=== PATIENT | female | born 1980 | race Caucasian/White ===

== ENCOUNTER 2017-06-12 12:38 | Emergency (ER) | payer MEDICAID, SELFPAY ==
[2017-06-12 14:28] VITALS: BP 145/89; PULSE 69; RESP 18; TEMP 37.1; O2SAT 97; BMI 46.6
[2017-06-12 14:28] LABS: UTC Influenza A Antigen Positive (Negative); UTC Influenza B Antigen Negative (Negative)
--- NOTE | 2017-06-12 15:03 | HMH.EDUTC ---
[facility] [place] Clinical Impression: Influenza A Disposition: Home, Self-Care Condition on Discharge: Good Instructions: DI for Influenza -- Adult Additional Instructions: * Start Tamiflu today if you are going to take it. Discussed risks and possible benefits. * Lots of rest * Increase fluids, water, gatorade, powerade, pedialyte if /toddler/child * Monitor Temp. Tylenol every 4 hours as needed no more then 5 times a day or 4000mg in 24 hours and/or ibuprofen every 6 hours as needed no more then 3200mg in 24 hours (as long as your primary care doctor has told you that it is ok to take both) for fever/aches/pain. ER if fever no less than 101 despite tylenol and Ibuprofen * You (or your child) are contagious until no fever, aches, chills x 24 hours without medication for symptoms. * warm salt water gargles * warm fluids * sore throat lozenges * sleep elevated * humidifier/vaporizer * * Per hospital policy, Your throat swab was sent for culture. Those results are typically sent to your primary care. Be sure to follow up in 2-3 days if no improvement so they can review those results and treat if necessary. If you don't have primary care, I recommend you get one but in the mean time, you will have to return to a walk in clinic. Prescriptions: Brompheniramine/Pseudoephed/Dm [Bromfed DM Cough Syrup 5mL] 10 ml PO QID PRN #240 ml PRN Reason: Cough Oseltamivir Phosphate [Tamiflu 75mg Capsule] 75 mg PO BID #10 capsule Referrals: Provider,Referral, MD [Primary Care Provider] - (IMMEDIATELY for new or worsening symptoms, improvement followed by suddenly feeling worse OR no noticeable improvement over the next 48-72 hours. 911 for difficulty breathing ) Time of Disposition: 15:10 Medical Decision Making Vital Signs: 06/12/17 14:28 Temperature 98.7 F Temperature Source Oral Pulse Rate [Left Brachial] 69 Respiratory Rate 18 Blood Pressure [Left Arm] 145/89 Blood Pressure Mean [Left Arm] 107 Blood Pressure Source [Left Arm] Automatic Cuff Blood Pressure Position [Left Arm] Sitting 02 Sat by Pulse Oximetry 97 Oxygen Delivery Method Room Air - Lab Data Lab results reviewed: Yes: I reviewed the patient's lab results. Lab Results 06/12/17 12:55: Influenza Type A Ag Positive A, Influenza Type B Ag Negative - Bill Inquiry Pt receiving controlled substance: No [facility] [place] - General Stated complaint: Flu Like Symptoms Time Seen by Provider: 06/12/17 14:50 Mode of Arrival: Ambulatory Source of Information: Patient Limitations: No Limitations Description of Symptoms (Recalled from Triage Doc. by RN): c/o cough, congestion, fever, bodyaches HEENT Symptoms (Recalled from RN notes): No Resp Symptoms (Recalled from RN notes): Yes (cough and congestion) Skin Symptoms (Recalled from RN notes): No MS Symptoms (Recalled from RN notes): Yes (bodyaches) Functional Status (Recalled from RN notes): n/a - History of Present Illness Provider Complaint: c/o bodyaches, chills, headache, sneezing, rhinorrhea starting yesterday. Spouse currently Flu A positive. Has had flu vaccine. Hasn't taken or tried anything for symptoms - Related Data Previous Rx's Medication Instructions Recorded Brompheniramine/Pseudoephed/Dm 10 ml PO QID PRN #240 ml 06/12/17 [Bromfed DM Cough Syrup 5mL] Oseltamivir Phosphate [Tamiflu 75 mg PO BID #10 cap 06/12/17 75mg Capsule] Allergies Allergy/AdvReac Type Severity Reaction Status Date / Time morphine Allergy Intermediate I-RASH Unverified 05/18/17 14:56 - Worker's Comp Is this a Worker's Comp case?: No [facility] History I have reviewed the patient's past medical history: Yes Medical History: Reports:: Hypertension Denies:: Cancer, Diabetes Mellitus Type 1, Diabetes Mellitus Type 2, MRSA Other Surgeries: Yes: (x2), Other (jasper, ) Amputation: No Fractures: No - *Social History Smoking Status: Current every day smoker Tobacco Type: cigarettes Alcohol Intake: alma
--- NOTE | 2017-06-12 15:06 | ED_ITS ---
[facility] [place]ression: Influenza A Disposition: Home, Self-Care Condition on Discharge: Good Instructions: DI for Influenza -- Adult Additional Instructions: * Start Tamiflu today if you are going to take it. Discussed risks and possible benefits. * Lots of rest * Increase fluids, water, gatorade, powerade, pedialyte if /toddler/child * Monitor Temp. Tylenol every 4 hours as needed no more then 5 times a day or 4000mg in 24 hours and/or ibuprofen every 6 hours as needed no more then 3200mg in 24 hours (as long as your primary care doctor has told you that it is ok to take both) for fever/aches/pain. ER if fever no less than 101 despite tylenol and Ibuprofen * You (or your child) are contagious until no fever, aches, chills x 24 hours without medication for symptoms. * warm salt water gargles * warm fluids * sore throat lozenges * sleep elevated * humidifier/vaporizer * * Per hospital policy, Your throat swab was sent for culture. Those results are typically sent to your primary care. Be sure to follow up in 2-3 days if no improvement so they can review those results and treat if necessary. If you don' t have primary care, I recommend you get one but in the mean time, you will have to return to a walk in clinic. Prescriptions: Brompheniramine/Pseudoephed/Dm [Bromfed DM Cough Syrup 5mL] 10 ml PO QID PRN # 240 ml PRN Reason: Cough Oseltamivir Phosphate [Tamiflu 75mg Capsule] 75 mg PO BID #10 capsule Referrals: Provider,Referral, MD [Primary Care Provider] - (IMMEDIATELY for new or worsening symptoms, improvement followed by suddenly feeling worse OR no noticeable improvement over the next 48-72 hours. 911 for difficulty breathing * ) Time of Disposition: 15:10 Medical Decision Making Vital Signs: 06/12/17 14:28 Temperature 98.7 F Temperature Source Oral Pulse Rate [Left Brachial] 69 Respiratory Rate 18 Blood Pressure [Left Arm] 145/89 Blood Pressure Mean [Left Arm] 107 Blood Pressure Source [Left Arm] Automatic Cuff Blood Pressure Position [Left Arm] Sitting 02 Sat by Pulse Oximetry 97 Oxygen Delivery Method Room Air - Lab Data Lab results reviewed: Yes: I reviewed the patient's lab results. Lab Results 06/12/17 12:55: Influenza Type A Ag Positive A, Influenza Type B Ag Negative - Bill Inquiry Pt receiving controlled substance: No [facility] [place] - General Stated complaint: Flu Like Symptoms Time Seen by Provider: 06/12/17 14:50 Mode of Arrival: Ambulatory Source of Information: Patient Limitations: No Limitations Description of Symptoms (Recalled from Triage Doc. by RN): c/o cough, congestion , fever, bodyaches HEENT Symptoms (Recalled from RN notes): No Resp Symptoms (Recalled from RN notes): Yes (cough and congestion) Skin Symptoms (Recalled from RN notes): No MS Symptoms (Recalled from RN notes): Yes (bodyaches) Functional Status (Recalled from RN notes): n/a - History of Present Illness Provider Complaint: c/o bodyaches, chills, headache, sneezing, rhinorrhea starting yesterday. Spouse currently Flu A positive. Has had flu vaccine. Hasn' t taken or tried anything for symptoms - Related Data Previous Rx's Medication Instructions Recorded Brompheniramine/Pseudoephed/Dm 10 ml PO QID PRN #240 ml 06/12/17 [Bromfed DM Cough Syrup 5mL] Oseltamivir Phosphate [Tamiflu 75 mg PO BID #10 cap 06/12/17 75mg Capsule] Allergies
[2017-06-12 15:18] VITALS: BP 145/89; PULSE 69; RESP 18; TEMP 37.1; O2SAT 97
== END 2017-06-12 15:19 | disposition home or self-care (01) ==
PROVIDERS: Emergency Provider Nurse Practitioner Family
DX: J10.1 Influenza due to other identified influenza virus with other respiratory manifestations (principal); Z88.6 Allergy status to analgesic agent
CPT/HCPCS: 87804; 99202

== ENCOUNTER → 2017-07-16 09:41 | Outpatient (CLI) | payer MEDICAID, SELFPAY ==
[2017-07-16 19:24] LABS: Amphetamine/Metha Screen,Urine Negative ng/mL (<1000); Barbiturates Screen,Urine Negative ng/mL (<200); Benzodiazepines Screen,Urine Negative ng/mL (200); Cannabinoid Screen,Urine Positive ng/mL (<50); Cocaine Screen,Urine Negative ng/g (<300); Methadone Screen,Urine Negative ng/mL (<300); Opiate Screen,Urine Negative ng/mL (<300); Phencyclidine Screen,Urine Negative ng/mL (<25)
== END ==
PROVIDERS: Visit Provider Nurse Practitioner Family
DX: Z79.899 Other long term (current) drug therapy (principal)
CPT/HCPCS: 80305

== ENCOUNTER → 2017-10-12 08:39 | Outpatient (REF) | payer MEDICAID, SELFPAY ==
[2017-10-12 14:01] LABS: Amphetamine/Metha Screen,Urine Negative ng/mL (<1000); Barbiturates Screen,Urine Negative ng/mL (<200); Benzodiazepines Screen,Urine Negative ng/mL (200); Cannabinoid Screen,Urine Positive ng/mL (<50); Cocaine Screen,Urine Negative ng/g (<300); Methadone Screen,Urine Negative ng/mL (<300); Opiate Screen,Urine Negative ng/mL (<300); Phencyclidine Screen,Urine Negative ng/mL (<25)
== END ==
LOC: LAB 08:39
PROVIDERS: Visit Provider Nurse Practitioner Family
DX: Z79.899 Other long term (current) drug therapy (principal)
CPT/HCPCS: 80305

== ENCOUNTER → 2018-01-17 13:49 | Outpatient (REF) | payer MEDICAID, SELFPAY ==
[2018-01-17 18:19] LABS: Amphetamine/Metha Screen,Urine Negative ng/mL (<1000); Barbiturates Screen,Urine Negative ng/mL (<200); Benzodiazepines Screen,Urine Negative ng/mL (<200); Cannabinoid Screen,Urine Positive ng/mL (<50); Cocaine Screen,Urine Negative ng/mL (<300); Methadone Screen,Urine Negative ng/mL (<300); Opiate Screen,Urine Negative ng/mL (<300); Phencyclidine Screen,Urine Negative ng/mL (<25)
== END ==
LOC: LAB 13:49
PROVIDERS: Visit Provider Nurse Practitioner Family
DX: Z79.899 Other long term (current) drug therapy (principal)
CPT/HCPCS: 80305

== ENCOUNTER → 2018-01-24 10:41 | Outpatient (POV) | payer MEDICAID, SELFPAY | PROVIDERS: PCP Nurse Practitioner Family; Visit Provider Specialist | DX: R20.0 Anesthesia of skin (principal); R20.2 Paresthesia of skin | CPT/HCPCS: 95886; 95908 ==

== ENCOUNTER 2018-02-11 15:30 | Outpatient (RCR) | payer MEDICAID, SELFPAY ==
--- NOTE | 2018-02-08 12:10 | HMH.PTOPEV ---
PT Outpatient Evaluation Rehab PT Outpatient Evaluation Start: 02/08/18 10:19 Freq: Status: Active Protocol: Document 02/08/18 10:19 [email or web address] (Rec: 02/08/18 12:10 [email or web address] [id number]) Electronically Signed By Bright Gómze, PT 02/08/18 10:19 Outpatient Therapy Subjective History Subjective History Pt. is a 37 year old female who presents to outpatient PT with an onset of LLE radicular symptoms and LB pain a couple of weeks ago after twisting the wrong way getting out of the car. Pt. reports having a steroid inj. and pain shot in her LB last week that provided some relief for 2 days. Pt. reports return to MD for X-ray this week. Current medications include fluid pills, Naproxen, and Gabapentin. PMH include tonsillectomy, 2 sections, and a cholecystectomy. Chief Complaint Pain Gives out/Unstable Paresthesia Symptom Type Ache Burning Tingling Symptoms Relieved By Prescription Meds Symptoms Aggravated By Sitting Bending/Stooping Lifting Prior Functional Limitations None Current Functional Limitations Lifting Driving Sitting Symptom Description Intermittent Level of pain today (0-10) 4 Pain scale - at its best (0-10) 1 Pain scale - at its worst (0-10) 8 Lumbopelvic Eval Posture Thoracic Spine Posture Standing Position Increased Kyphosis Lumbar Spine Posture Standing Position Flattened Assistive device Assistive Devices None / NA Gait Observation General Gait Pattern Observation No Deviations/Normal Palapation tenderness left thoracic spinal tenderness No lumbar spinal tenderness Yes: grade 2 +TTP L2-L5 paraspinal tenderness Yes: grade 2 +TTP L2-L5 L paraspinals buttock tenderness Yes: grade 2 +TTP L piriformis mm. belly Lumbar/Sacral Palpation Findings Tenderness right Lumbar/Sacral Palpation Findings None/Normal Accessory Movement L-spine Vertebrae Accessory Movements [employer] [facility] [place] that Elicit Symptoms L2
== END 2018-03-14 17:00 | disposition home or self-care (01) ==
LOC: PT 15:30
PROVIDERS: Visit Provider Nurse Practitioner Family
DX: M54.42 Lumbago with sciatica, left side (principal)
CPT/HCPCS: 97110; 97163

== ENCOUNTER → 2018-04-12 17:52 | Outpatient (CLI) | payer MEDICAID, SELFPAY ==
[2018-04-12 20:35] LABS: Amphetamine/Metha Screen,Urine Negative ng/mL (<1000); Barbiturates Screen,Urine Negative ng/mL (<200); Benzodiazepines Screen,Urine Negative ng/mL (<200); Cannabinoid Screen,Urine Positive ng/mL (<50); Cocaine Screen,Urine Negative ng/mL (<300); Methadone Screen,Urine Negative ng/mL (<300); Opiate Screen,Urine Negative ng/mL (<300); Phencyclidine Screen,Urine Negative ng/mL (<25)
== END ==
PROVIDERS: Visit Provider Nurse Practitioner Family
DX: R39.89 Other symptoms and signs involving the genitourinary system (principal); Z79.899 Other long term (current) drug therapy
CPT/HCPCS: 80305; 87086

== ENCOUNTER → 2018-04-28 14:07 | Outpatient (CLI) | payer MEDICAID, SELFPAY ==
--- NOTE | 2018-04-28 14:09 | XR_ITS ---
EXAM: XR lumbar spine 2-3V HISTORY: Low back pain ITS.REASON: pain ORDERING PHYSICIAN: Geri Rogers MD PATIENT AGE: 37 years COMPARISON: None FINDINGS: Normal alignment. No fracture or dislocation. No lytic or blastic change. There is straightening of the lumbar lordosis which could be due to patient positioning or muscle status. There is mild degenerative disc disease at L2-L3 IMPRESSION: Mild degenerative disc disease L2-L3 with straightening of lumbar lordosis
--- NOTE | 2018-04-28 14:09 | XR_ITS ---
XR wrist RT min 3V HISTORY ITS.REASON: Rt wrist pain ORDERING PHYSICIAN: Geri Rogers MD PATIENT AGE: 37 years Comparison: None FINDINGS: No fracture or dislocation. No lytic or blastic change. There is normal mineralization.. The joint spaces are well-preserved. No significant degenerative/arthritic changes. No erosive changes evident.. IMPRESSION: Negative wrist
== END ==
PROVIDERS: PCP Nurse Practitioner Family; Visit Provider Orthopaedic Surgery
DX: M54.42 Lumbago with sciatica, left side (principal); M25.531 Pain in right wrist
CPT/HCPCS: 72100; 73110

== ENCOUNTER 2018-04-28 15:24 | Outpatient (RCR) | payer MEDICAID, SELFPAY | END 2018-04-29 12:00 | disposition home or self-care (01) | LOC: OT 15:24 | PROVIDERS: Visit Provider Orthopaedic Surgery | DX: G56.01 Carpal tunnel syndrome, right upper limb (principal) | CPT/HCPCS: 97763 ==

== ENCOUNTER → 2018-05-26 13:48 | Outpatient (CLI) | payer MEDICAID, SELFPAY ==
--- NOTE | 2018-05-26 13:50 | NVE_ITS ---
Venous Exam Indications: 729.5 Pain in limb. IMPRESSIONS 1. There is no evidence of significant reflux. 2. No evidence of deep or superficial vein thrombosis involving the veins of the right upper extremity History: Right upper extremity pain. Risk factors: Current tobacco use. Obese. Takes Asa 81mg qd Right upper extremity venous duplex. Doppler flow study including spectral analysis, color and rivera scale imaging. Location: Vascular laboratory. Patient status: Outpatient. Tables: Venous flow and imaging: + + + Location Flow properties + + + Right internal jugular Normal phasicity; spontaneous; compressible + + + Right subclavian Normal phasicity; spontaneous; normal augmentation; compressible + + + Right axillary Normal phasicity; spontaneous; normal augmentation; compressible + + + Right brachial Normal phasicity; spontaneous; normal augmentation; compressible + + + Right cephalic Normal phasicity; spontaneous; normal augmentation; compressible + + + Right basilic Normal phasicity; spontaneous; normal augmentation; compressible + + + Right radial Compressible + + + Right ulnar Compressible + + + (Report amended ) Electronically signed by: Rick Larson [id number]
--- NOTE | 2018-05-26 13:50 | XR_ITS ---
XR wrist LT min 3V HISTORY: ITS.REASON: pain ORDERING PHYSICIAN: Alla Jacinto PATIENT AGE: 37 years COMPARISON: None FINDINGS: No fracture or dislocation. No lytic or blastic change. There is normal mineralization.. The joint spaces are well-preserved. No significant degenerative/arthritic changes. No erosive changes evident.. IMPRESSION: Negative wrist
== END ==
PROVIDERS: PCP Emergency Medicine; Visit Provider Nurse Practitioner Family
DX: M79.89 Other specified soft tissue disorders (principal); M79.601 Pain in right arm
CPT/HCPCS: 73110; 93971

== ENCOUNTER → 2018-06-20 12:51 | Outpatient (CLI) | payer MEDICAID, SELFPAY ==
--- NOTE | 2018-06-20 12:54 | MR_ITS ---
MR lumbar spine wo con, MR 3-d myelogram/MRCP Ordering Physician: Chetan Ascencio Patient Age: 38 years: Female HISTORY: ITS.REASON: LOW BACK PAIN low back pain left hip left leg pain 8 months. Left leg weakness. TECHNIQUE: Sagittal STIR, T1, T2, axial T1 and T2. On 1.5T Siemens wide bore MRI. 3-D MR myelogram image set obtained & performed on MRI workstation. Additional sagittal thin section T2 weighted dataset obtained from this latter acquisition as well (---76 CPT) COMPARISON :CT abdomen reconstructions September 2015. FINDINGS Vertebral bodies are intact. Overall Disc heights are well-maintained with only slight loss of hydration L2/3 L3/4 There is a modest volume underlying osseous spinal canal noted . L5/S1. Disc intact. Moderate facet hypertrophy/arthropathy bilaterally. Mildly flavum hypertrophy.- These features slightly taper the thecal sac right more than left. This subtle tapering evident on the 3-D myelogram image set L4/5. Moderate Disc protrusion at right foramen encroaches yields encroachment upon the right foramen and right recess, axial image 25 sagittal image 5 and surprising patient does not have right L4 symptoms from this feature.. At the left foramen at this level widely patent. There is a mild to moderate facet arthropathy with slight narrowing of the thecal sac overall L3/4. Lateral Disc protrusion is seen is seen at and extending lateral to the left foramen. (Axial image 20 sagittal 11) Possibly extends to abut the leftGanglia. L2/3. Mild foraminal disc bulge to the left more so than right slightly indents the left anterior corner of the thecal sac and yields mild foraminal encroachment. L1/2. Disc intact. T12/L1 disc hydration and intact. T10-T11/12 disc intact. Conus appears satisfactory in the at the L2 level. 3-D MR myelogram image set: The above described foraminal disc protrusions have little impact upon the thecal sac. The posterior element hypertrophy does yield slight lateral tapering and slight narrowing of the thecal sac at L4/5 and L5/S1. Only question very subtle indentation anterior left corner of the thecal sac at L2/3 & L3 /4 IMPRESSION... 1. Regarding left-sided pain:. There are left foraminal disc protrusions most pronounced at L3/4, with a smaller left foraminal disc protrusion L2/3. . These yield encroachment upon the left foramen,- with most pronounced leftward foraminal encroachment is seen to at L3/4.. 2. L4/5. Actually the Most prominent disc disc protrusion/developing disc herniation is seen encroaching upon the right foramen L4/5.... Somewhat surprised there are no right-sided L4 symptoms due to this feature.
== END ==
PROVIDERS: PCP Emergency Medicine; Visit Provider Orthopaedic Surgery Adult Reconstructive Orthopaedic Surgery
DX: M54.5 Low back pain (principal)
CPT/HCPCS: 72148; 76376

== ENCOUNTER → 2018-08-01 14:25 | Outpatient (CLI) | payer BC, SELFPAY ==
[2018-08-01 16:00] LABS: Amphetamine/Metha Screen,Urine Negative ng/mL (<1000); Barbiturates Screen,Urine Negative ng/mL (<200); Benzodiazepines Screen,Urine Negative ng/mL (<200); Cannabinoid Screen,Urine Positive ng/mL (<50); Cocaine Screen,Urine Negative ng/mL (<300); Methadone Screen,Urine Negative ng/mL (<300); Opiate Screen,Urine Negative ng/mL (<300); Phencyclidine Screen,Urine Negative ng/mL (<25)
== END ==
PROVIDERS: Visit Provider Nurse Practitioner Family
DX: Z79.899 Other long term (current) drug therapy (principal)
CPT/HCPCS: 80305

== ENCOUNTER → 2019-02-03 14:22 | Outpatient (CLI) | payer BC, SELFPAY ==
[2019-02-03 15:37] LABS: Basophils # 0.1 K/mm3 (0-0.2); Eosinophils # 0.2 K/mm3 (0.0-0.4); Eosinophils % 1.6 % (0.1-12.0); Hematocrit 44.7 % (37.0-47.0); Hemoglobin 14.7 g/dL (12.2-16.2); Lymphocytes # 3.6 K/mm3 (0.7-4.5); Lymphocytes % 36.6 % (10-50); Mean Corpuscular HGB Conc 32.9 g/dL (31.8-35.4); Mean Corpuscular Hemoglobin 31.3 pg (27.0-31.2); Mean Corpuscular Volume 95.2 fl (81-99); Mean Platelet Volume 10.6 fl (7.4-10.4); Monocytes # 0.5 K/mm3 (0.1-1.0); Monocytes % 5.2 % (1.7-9.3); Neutrophils # 5.5 K/mm3 (1.8-7.8); Neutrophils % 55.7 % (37.0-80.0); Platelet Count 364 K/mm3 (142-424); Red Blood Count 4.69 M/mm3 (4.20-5.40); Red Cell Distribution Width 12.7 % (11.5-17.5); White Blood Count 9.9 K/mm3 (4.8-10.8)
[2019-02-03 16:17] LABS: Alanine Aminotransferase 21 U/L (12-78); Albumin Level 3.3 gm/dL (3.4-5.0); Alkaline Phosphatase 73 U/L (46-116); Anion Gap 13.3 mEq/L (5-15); Aspartate Amino Transferase 15 U/L (15-37); Bilirubin,Total 0.2 mg/dL (0.2-1.0); Blood Urea Nitrogen 10 mg/dL (7-18); Calcium 9.1 mg/dL (8.5-10.1); Carbon Dioxide 27 mmol/L (21.0-32.0); Chloride 104 mmol/L (98-107); Chol/HDL Ratio 7.2 (1-3.5); Cholesterol 209 mg/dL (140-200); Creatinine,Serum 1.06 mg/dL (0.55-1.02); Estimated Glomerular Filt Rate 58 ml/min (>60); GFR (African American) 70 ML/MIN (>60); Globulin 3.3 gm/dl (1.3-3.2); Glucose 126 mg/dL (74-106); HDL Cholesterol 29 mg/dL (29-89); LDL Cholesterol 153 mg/dL (0-130); Potassium 4.3 mmoL/L (3.5-5.1); Sodium 140 mmol/L (136-145); T4 (Thyroxine) 10.2 ug/dl (4.7-13.3); Thyroid Stimulating Hormone 2.28 uIU/ml (0.358-3.740); Total Protein,Serum 6.6 gm/dL (6.4-8.2); Triglycerides 135 mg/dL (30-200); VLDL Cholesterol 27 mg/dL (0-40)
[2019-02-03 16:32] LABS: Amphetamine/Metha Screen,Urine Negative ng/mL (<1000); Barbiturates Screen,Urine Negative ng/mL (<200); Benzodiazepines Screen,Urine Negative ng/mL (<200); Cannabinoid Screen,Urine Positive ng/mL (<50); Cocaine Screen,Urine Negative ng/mL (<300); Methadone Screen,Urine Negative ng/mL (<300); Opiate Screen,Urine Negative ng/mL (<300); Phencyclidine Screen,Urine Negative ng/mL (<25)
[2019-02-06 09:55] LABS: Vitamin D 25 Hydroxy 11.3 ng/mL (30.0-100.0)
== END ==
PROVIDERS: Visit Provider Nurse Practitioner Family
DX: Z00.00 Encounter for general adult medical examination without abnormal findings (principal); Z79.899 Other long term (current) drug therapy; E55.9 Vitamin D deficiency, unspecified; G25.81 Restless legs syndrome
CPT/HCPCS: 80053; 80061; 80305; 82652; 84436; 84443; 85025

== ENCOUNTER → 2019-05-02 14:06 | Outpatient (CLI) | payer BC, SELFPAY ==
[2019-05-02 14:34] LABS: Hemoglobin A1C 6.1 % (0.0-7.0)
[2019-05-02 14:50] LABS: Amphetamine/Metha Screen,Urine Negative ng/mL (<1000); Barbiturates Screen,Urine Negative ng/mL (<200); Benzodiazepines Screen,Urine Negative ng/mL (<200); Cannabinoid Screen,Urine Positive ng/mL (<50); Cocaine Screen,Urine Negative ng/mL (<300); Methadone Screen,Urine Negative ng/mL (<300); Opiate Screen,Urine Negative ng/mL (<300); Phencyclidine Screen,Urine Negative ng/mL (<25)
[2019-05-02 15:09] LABS: Anion Gap 13.5 mEq/L (5-15); Blood Urea Nitrogen 6 mg/dL (7-18); Carbon Dioxide 26 mmol/L (21.0-32.0); Chloride 104 mmol/L (98-107); Chol/HDL Ratio 8.5 (1-3.5); Cholesterol 254 mg/dL (140-200); Creatinine,Serum 0.94 mg/dL (0.55-1.02); Estimated Glomerular Filt Rate 66 ml/min (>60); GFR (African American) 80 ML/MIN (>60); Glucose 107 mg/dL (74-106); HDL Cholesterol 30 mg/dL (29-89); LDL Cholesterol 189 mg/dL (0-130); Potassium 4.5 mmoL/L (3.5-5.1); Sodium 139 mmol/L (136-145); Triglycerides 173 mg/dL (30-200); VLDL Cholesterol 35 mg/dL (0-40)
[2019-05-04 11:18] LABS: Vitamin D 25 Hydroxy 7.8 ng/mL (30.0-100.0)
== END ==
PROVIDERS: Visit Provider Nurse Practitioner Family
DX: G62.9 Polyneuropathy, unspecified (principal); E55.9 Vitamin D deficiency, unspecified; Z79.899 Other long term (current) drug therapy
CPT/HCPCS: 80048; 80061; 80305; 82652; 83036

== ENCOUNTER → 2019-08-10 09:54 | Outpatient (CLI) | payer OTHER, BC, SELFPAY ==
--- NOTE | 2019-08-10 09:58 | MM_ITS ---
PROCEDURE: MM DIG SCREENING MAMM BI W/CAD BILATERAL DIGITAL BREAST TOMOSYNTHESIS INCLUDED Patient Age:39Y CLINICAL INDICATION: Screening 39-year-old no hormones no new complaints noncontributory family history . Baseline screening mammogram COMPARISON: No exams were available for comparisonBaseline screening mammogram TECHNIQUE: Standard CC and MLO images were obtained. R2 CAD reviewed. Bilateral digital breast tomosynthesis included. Also axillary CC view left breast FINDINGS: Lower-density breast with moderate generalized fatty replacement and minimal scattered fibroglandular elements throughout. Left breast unremarkable. No areas of comment or concern. Right breast: Small subtle round area of nodularity is seen on CC views on and also suggested on the MLO tomosynthesis image set (image 32). This small round area measuring 4.5 mm x 4 mm lateral breast towards 9 o'clock position. Suspected most likely is a insignificant or benign features such is a tiny cyst or prominent duct... In the in current setting suggest follow-up mammogram and ultrasound 4-6 months in this younger patient to confirm stability.. In baseline appearance IMPRESSION: Right breast: Small 4.5 mm ovoid density lateral right breast. Unimpressive and most likely benign features such as small cyst or prominent duct.. In the current setting I would suggest a follow-up right mammogram 4-6 months with right breast ultrasound-to help confirm stable baseline appearance and insignificant benign feature. Left breast: Unremarkable follow-up in 1 year on left BI-RAD Category: 3 Probably Benign Finding Short Term Follow-up FOLLOW-UP: 4M-6 Month Follow-up (A letter has been sent to the patient regarding results of the study.). Dictated by: Rick Larson MD 08/16/2019 12:32 Electronically signed by Rick Larson MD in [place] 08/16/2019 12:32
== END ==
PROVIDERS: PCP Emergency Medicine; Visit Provider Nurse Practitioner Family
DX: Z12.31 Encounter for screening mammogram for malignant neoplasm of breast (principal)
CPT/HCPCS: 77063; 77067

== ENCOUNTER → 2019-12-25 08:55 | Outpatient (CLI) | payer OTHER, SELFPAY ==
[2019-12-25 11:08] LABS: Coronavirus 19 IgG Antibody Negative (Negative); Coronavirus 19 IgM Antibody Negative (Negative)
== END ==
PROVIDERS: Visit Provider Surgery
DX: Z01.818 Encounter for other preprocedural examination (principal); Z12.11 Encounter for screening for malignant neoplasm of colon
CPT/HCPCS: 36415; 86328

== ENCOUNTER 2019-12-26 08:59 | Day surgery (SDC) | payer OTHER, SELFPAY ==
[2019-12-26 09:14] VITALS: BMI 47.8
[2019-12-26 09:15] VITALS: BP 123/70; PULSE 65; RESP 18; TEMP 36.3; O2SAT 98
[2019-12-26 09:38] LABS: Urine Pregnancy, HCG Qual. Negative (Negative)
--- NOTE | 2019-12-26 10:11 | HMH.ANESCL ---
[facility] Anesthesia Checklist - Patient Identification Patient Identification: Arm Band, Verbal (Name & ) - Structural Data Admitted From: Home Planned Operative Procedure/s: Colonoscopy Consent for Planned Operative Procedure(s) Verified: Yes Verified Documents: Surgical Consent, History and Physical - NPO Status Verified Time NPO: 00:00 - Chart Verification Results Verified: HCG - Additional verifications Patient : No Anesthesia Reactions: No - Airway Assessment C-Spine Mobility Assessed: Yes (MP 3, TMD 3, thick neck, large tongue) TMJ Mobility Assessed: Yes Dentition: Good Dentition - Neurological Assessment Level of Consciousness: Awake, Alert, Appropriate, Follows Commands Hx Seizures: No Numbness or tingling in extremities: Yes - Anesthesia Plan Anesthesia Risk discussed: Yes Anesthesia Plan: Verified ASA Class: IV Anesthesia Type: MAC [facility] History I have reviewed the patient's past medical history: Yes Medical History: Reports:: Congestive Heart Failure, Chronic Obstructive Pulmonary Disease (COPD), Gastroesophageal Reflux Disease(GERD), Hyperlipidemia, Hypertension Denies:: Cancer, Diabetes Mellitus Type 1, Diabetes Mellitus Type 2, Internal Pacemaker, MRSA, Seizures *Have you ever received a pneumonia vaccine?: No *Have you received a flu vaccine this season?: Yes Comment:: Chronic pain, morbid obesity, YOLY Anesthesia experience/problems:: no prior complications Laterality Cases: Bilateral: Tonsillectomy Other Surgeries: Yes: Cardiac Catheterization, Cholecystectomy, Colonoscopy, , Other (Sinus). No: Pacemaker Amputation: No Fractures: No - *Social History Smoking Status: Current every day smoker Tobacco Type: cigarettes # Packs/Day (cigarettes): 1 Alcohol Intake: never Substance Use Type: denies use *Occupational Status:: employed Housing: house Household Members: spouse *Travel in the last 8 weeks: None - Psychiatric History Pschychiatric History:: Reports:: Anxiety, Depression Family Hx:: Stroke, Heart Attack, Hyperlipidemia, Hypertension, Cancer
--- NOTE | 2019-12-26 10:11 | HMH.GSHP ---
HPI HPI: Patient is a 39-year-old female from [place] referred by Dr. Martínez's office for colonoscopy. She states that she actually underwent colonoscopy [address] Dennis Salgado in [place] for what she states was screening purposes and she had polyps. It was recommended she undergo follow-up colonoscopy in 3 years. She has no symptomatology. Denies family history of colon cancer. [facility] History I have reviewed the patient's past medical history: Yes Medical History: Reports:: Anxiety, Depression, Gastroesophageal Reflux Disease(GERD), Hyperlipidemia, Hypertension Denies:: Cancer, Diabetes Mellitus Type 1, Diabetes Mellitus Type 2, Internal Pacemaker, MRSA, Seizures *Have you ever received a pneumonia vaccine?: No *Have you received a flu vaccine this season?: Yes Laterality Cases: Bilateral: Tonsillectomy Other Surgeries: Yes: Cardiac Catheterization, Colonoscopy, , Other. No: Pacemaker Amputation: No Fractures: No - *Social History Smoking Status: Current every day smoker Tobacco Type: cigarettes # Packs/Day (cigarettes): 1 Alcohol Intake: never Substance Use Type: denies use *Occupational Status:: employed Housing: house Household Members: spouse *Travel in the last 8 weeks: None - Psychiatric History Pschychiatric History:: Reports:: Anxiety, Depression Family Hx:: Stroke, Heart Attack, Hyperlipidemia, Hypertension, Cancer Review of Systems - Review of Systems Review of systems:: pertinent systems reviewed and negative unless documented below Meds Home Medications Medication Instructions Recorded Confirmed Type albuterol sulfate 90 mcg/actuation 2 puff INHALATION Q6H PRN #18 g 11/06/19 12/26/19 Rx aerosol inhaler Atorvastatin Calcium [Lipitor 10mg 10 mg PO QHS 12/22/19 12/26/19 History Tab] Ergocalciferol (Vitamin D2) 50,000 unit PO QWEEK 12/22/19 12/26/19 History [Drisdol] Fluticasone Propionate 1 spray INTRANASAL QDAY 12/22/19 12/26/19 History Furosemide [Furosemide 20mg Tab] 20 mg PO DAILY 12/22/19 12/26/19 History Gabapentin 800 mg PO QID 12/22/19 12/26/19 History Metoprolol Tartrate 50 mg PO DAILY 12/22/19 12/26/19 History Montelukast Sodium 10 mg PO QHS 12/22/19 12/26/19 History Naproxen 500 mg PO BID 12/22/19 12/26/19 History Naproxen 500 mg PO BID 12/22/19 12/26/19 History Omeprazole 40 mg PO DAILY 12/22/19 12/26/19 History predniSONE [Deltasone 20mg 20 mg PO BID 12/22/19 12/26/19 History tablet] [id number]/Sod Sulf,Bicarb,Cl/KCl 240 ml PO Q10M 12/26/19 12/26/19 History [Gavilyte-C Solution] Allergies Allergy/AdvReac Type Severity Reaction Status Date / Time morphine Allergy Intermediate I-RASH Verified 12/26/19 09:14 Exam Vital signs and Labs for Last 24 Hours: Temp Pulse Resp BP Pulse Ox 97.4 F L 65 18 123/70 98 12/26/19 09:15 12/26/19 09:15 12/26/19 09:15 12/26/19 09:15 12/26/19 09:15 Laboratory Results - last 24 hr 12/26/19 09:07: Urine HCG, Qual Negative I & O for Last 24 hours: Intake & Output 12/23/19 12/24/19 12/25/19 12/26/19 11:59 11:59 11:59 11:59 Weight 270 lb - *Routine HEENT Exam Head: Present: normocephalic Eye: Present: EOMI, PERRL ENT: Present: mucous membranes moist - *Routine Neck Exam Present: supple. Absent: lymphadenopathy - *Routine Respiratory Exam Present: CTA bilaterally - *Routine Cardiovascular Exam Present: RRR - *Routine Abdominal Exam Present: soft, normoactive bowel sounds. Absent: tenderness - *Routine Extremities Exam Absent: cyanosis, clubbing, edema - *Routine Skin Exam Present: warm. Absent: rash - *Routine Neurological Exam Present: alert, oriented X3 Results - Results Lab Results Last 24 Hours:: Laboratory Results - last 24 hr 12/26/19 09:07: Urine HCG, Qual Negative Assessment and Plan - Assessment and plan all Dx Assessment and Plan for all problems:: Colonoscopy
[2019-12-26 10:19] VITALS: O2SAT 97
--- NOTE | 2019-12-26 10:45 | HMH.SCOPE ---
- Procedure: Date: 12/26/19 Procedure Performed:: Colonoscopy Indications:: Patient is a 39-year-old female from [place] referred by Dr. Martínez's office for colonoscopy. She states that she actually underwent colonoscopy 5 years ago at the age of 34 [address] Dennis Salgado in [place] for what she states was screening purposes and she had polyps. It was recommended she undergo follow-up colonoscopy in 3 years. She has no symptomatology. Denies family history of colon cancer. Performing Provider:: Don Anguiano MD Referring Provider:: Socrates Martínez MD Sedation:: Propofol Procedure:: Patient was taken to endoscopy procedure room. She was positioned in a lateral decubitus position. Adequate intravenous sedation was achieved with anesthesia titration of propofol. Variable stiffness Olympus colonoscope was inserted via the anus and it was advanced to the cecum. Colonic preparation was moderate but adequate visualization was achieved with thorough irrigation and suctioning. Ileocecal valve and appendiceal orifice were clearly identified. Colonoscope was withdrawn through the colon with careful surveillance. She had some diminutive hyperplastic appearing polyps at the rectosigmoid region 1 of which was removed with cold biopsy forceps and one was removed with cold snare. Retroflexion within the rectum revealed no evidence of any pathologic internal hemorrhoids. Colonoscope was withdrawn. Findings:: Sigmoid diverticulosis Hyperplastic appearing rectosigmoid polyps Recommendations:: Likely repeat colonoscopy 5 years given the somewhat suboptimal preparation and prior history of polyps colonoscopy done at outside facility. Complications:: None immediately apparent Estimated blood obtained (mL): 3
[2019-12-26 10:50] VITALS: BP 90/76; PULSE 72; RESP 16; TEMP 36.2; O2SAT 93
[2019-12-26 11:00] VITALS: BP 104/67; PULSE 61; RESP 16; O2SAT 94
[2019-12-26 11:10] VITALS: BP 121/70; PULSE 57; RESP 16; O2SAT 95
[2019-12-26 11:20] VITALS: BP 121/82; PULSE 64; RESP 16; O2SAT 95
== END 2019-12-26 11:20 | disposition home or self-care (01) ==
LOC: OUTP 09:00
PROVIDERS: PCP Emergency Medicine; Visit Provider Surgery
PROC: 0DJD8ZZ Inspection of Lower Intestinal Tract, Via Natural or Artificial Opening Endoscopic (ICD-10-PCS; CPT 45385; principal; 2019-12-26 10:00)
DX: Z12.11 Encounter for screening for malignant neoplasm of colon (principal); Z86.010 Personal history of colon polyps; K63.5 Polyp of colon; K57.30 Diverticulosis of large intestine without perforation or abscess without bleeding; J44.9 Chronic obstructive pulmonary disease, unspecified; E78.5 Hyperlipidemia, unspecified; I11.0 Hypertensive heart disease with heart failure; I50.9 Heart failure, unspecified; K21.9 Gastro-esophageal reflux disease without esophagitis; G47.33 Obstructive sleep apnea (adult) (pediatric); E66.01 Morbid (severe) obesity due to excess calories; Z68.42 Body mass index [BMI] 45.0-49.9, adult
CPT/HCPCS: 45385; 81025

== ENCOUNTER → 2020-03-04 09:46 | Outpatient (CLI) | payer OTHER, SELFPAY ==
--- NOTE | 2020-03-04 09:49 | XR_ITS ---
PROCEDURE: XR WRIST RT MIN 3V CLINICAL INDICATION: RT wrist pain COMPARISON: CR WRISTCMRT XR wrist RT min 3V from 04/28/2018 CR WRISTCMLT XR wrist LT min 3V from 05/26/2018 FINDINGS: No fracture or dislocation. No lytic or blastic change. There is normal mineralization. The joint spaces are well-preserved. No significant degenerative/arthritic changes. No erosive changes evident. Other findings:None. IMPRESSION: No acute findings. Dictated by: Barrie Kwong MD 03/04/2020 10:48 Barrie Kwong MD in [place] 03/04/2020 10:48
== END ==
PROVIDERS: PCP Emergency Medicine; Visit Provider Orthopaedic Surgery
DX: G56.01 Carpal tunnel syndrome, right upper limb (principal)
CPT/HCPCS: 73110

== ENCOUNTER → 2020-03-07 14:51 | Outpatient (CLI) | payer OTHER, SELFPAY ==
--- NOTE | 2020-03-07 14:51 | MM_ITS ---
PROCEDURE: MM DIG MAMM DX UNILAT RT CAD Digital Breast Tomosynthesis Included CLINICAL INDICATION: Abnormal mamm COMPARISON: MG MM DIG SCREENING MAMM BI W/CAD from 08/10/2019 US US BREAST RT COMPLETE from 03/07/2020 TECHNIQUE: Standard CC and MLO images and 3D Tomosynthesis was obtained. R2 CAD reviewed. FINDINGS: Ridge fibroglandular tissue. There is a 3 mm nodular opacity in the retroareolar region on the right which may be lateral on the CC view. This is unchanged to slightly less prominent as noted on the CC view. No malignant appearing mass malignant-appearing microcalcification is evident. Right breast ultrasound: At 10 o'clock there is a hyperechoic nodule at 9 x 6 mm consistent with a small lipoma. No suspicious nodule is evident. IMPRESSION: Benign findings. Recommend resume screening mammogram July 2020 of both breast. BI-RAD Category: 2 Benign Finding(s) FOLLOW-UP: 6M 6Month Follow-up (A letter has been sent to the patient regarding results of the study.) Dictated by: Barrie Kwong MD 03/11/2020 10:23 Barrie Kwong MD in [place] 03/11/2020 10:23
== END ==
PROVIDERS: PCP Emergency Medicine; Visit Provider Emergency Medicine
DX: R92.8 Other abnormal and inconclusive findings on diagnostic imaging of breast (principal)
CPT/HCPCS: 76641; 77061; 77065; G0279

== ENCOUNTER → 2020-04-08 13:46 | Outpatient (CLI) | payer OTHER, SELFPAY ==
--- NOTE | 2020-04-08 13:46 | MR_ITS ---
PROCEDURE: MR LUMBAR SPINE WO CON CLINICAL INDICATION: back pain LOW BACK PAIN WITH LEFT SIDED SCIATICA, NO INJURY. PRIOR MRI 06-20-18 COMPARISON: MR SPLUMBWO MR lumbar spine wo con from 06/20/2018 TECHNIQUE: Standard multiplanar multiecho sequences are performed without contrast. 3-D MIP and myelographic images are also rendered and reviewed FINDINGS: There is normal alignment. The spinal cord ends at the L1-L2 level. T12-L1 and L1-L2 have an unremarkable appearance. L2-L3: There is a left lateral disc osteophyte complex with some mild left-sided foraminal narrowing not significantly changed. L3-L4: Small left lateral and foraminal disc osteophyte complex causing mild foraminal narrowing not significantly changed. L4-5: Facet hypertrophic change with a small right foraminal disc protrusion with foraminal narrowing on the right not significantly changed. L5-S1: Mild facet and ligamentum hypertrophy. IMPRESSION: Overall no significant change from 06/20/2018. No canal stenosis or extruded herniated disc. Small left lateral disc osteophyte complex at L2-L3 and small left lateral foraminal disc osteophyte complex at L3-L4 with a small right foraminal disc protrusion at L4-5 overall not significantly changed compared to the previous exam Dictated by: Barrie Kwong MD 04/09/2020 09:07 Barrie Kwong MD in [place] 04/09/2020 09:07
== END ==
PROVIDERS: PCP Emergency Medicine; Visit Provider Emergency Medicine
DX: M54.5 Low back pain (principal)
CPT/HCPCS: 72148; 76376

== ENCOUNTER → 2020-05-06 11:43 | Outpatient (CLI) | payer OTHER, SELFPAY ==
[2020-05-06 15:50] LABS: Coronavirus 19 IgG Antibody Negative (Negative); Coronavirus 19 IgM Antibody Negative (Negative)
== END ==
PROVIDERS: Visit Provider Emergency Medicine
DX: Z03.818 Encounter for observation for suspected exposure to other biological agents ruled out (principal)
CPT/HCPCS: 36415; 86328

== ENCOUNTER → 2020-05-07 20:26 | Outpatient (CLI) | payer OTHER, SELFPAY | PROVIDERS: PCP Emergency Medicine; Visit Provider Emergency Medicine | DX: I10 Essential (primary) hypertension (principal); R40.0 Somnolence; R06.83 Snoring; E66.9 Obesity, unspecified; J44.9 Chronic obstructive pulmonary disease, unspecified; Z01.818 Encounter for other preprocedural examination; Z03.818 Encounter for observation for suspected exposure to other biological agents ruled out; G47.33 Obstructive sleep apnea (adult) (pediatric) | CPT/HCPCS: 95810 ==

== ENCOUNTER → 2020-05-20 18:07 | Outpatient (CLI) | payer OTHER, SELFPAY ==
[2020-05-20 18:59] LABS: Alanine Aminotransferase 28 U/L (12-78); Albumin Level 3.8 g/dl (3.5-5.0); Albumin/Globulin Ratio 1.3 (1.1-1.8); Alkaline Phosphatase 76 U/L (38-126); Anion Gap 11.1 mEq/L (5-15); Aspartate Amino Transferase 24 U/L (14-36); Bilirubin,Total 0.4 mg/dl (0.2-1.3); Blood Urea Nitrogen 10 mg/dl (7-17); Calcium 9.7 mg/dl (8.4-10.2); Carbon Dioxide 25 mmol/L (22.0-30.0); Chloride 106 mmol/L (98-107); Chol/HDL Ratio 6.3 (1-3.5); Cholesterol 202 mg/dl (140-200); Estimated Glomerular Filt Rate 79 ml/min (>60); GFR (African American) 96 ML/MIN (>60); Globulin 2.9 g/dL (1.3-3.2); Glucose 109 mg/dl (74-100); HDL Cholesterol 32 mg/dl (40-60); Potassium 4.1 mmoL/L (3.5-5.1); Sodium 138 mmol/L (136-145); Total Protein,Serum 6.7 g/dl (6.3-8.2); Triglycerides 250 mg/dl (30-150); VLDL Cholesterol 50 mg/dL (0-40)
[2020-05-20 19:03] LABS: Basophils # 0.2 K/mm3 (0-0.2); Basophils % 1.1 % (0.1-2.0); Eosinophils # 0.3 K/mm3 (0.0-0.4); Eosinophils % 2.1 % (0.1-12.0); Hematocrit 46.4 % (37.0-47.0); Hemoglobin 15.2 g/dL (12.2-16.2); Lymphocytes # 3.8 K/mm3 (0.7-4.5); Lymphocytes % 27.1 % (10-50); Mean Corpuscular HGB Conc 32.8 g/dL (31.8-35.4); Mean Corpuscular Hemoglobin 31.4 pg (27.0-31.2); Mean Corpuscular Volume 95.7 fl (81-99); Mean Platelet Volume 10.6 fl (7.4-10.4); Monocytes # 0.8 K/mm3 (0.1-1.0); Monocytes % 5.4 % (1.7-9.3); Neutrophils % 64.3 % (37.0-80.0); Platelet Count 327 K/mm3 (142-424); Red Blood Count 4.85 M/mm3 (4.20-5.40); Red Cell Distribution Width 13.1 % (11.5-17.5)
[2020-05-20 19:10] LABS: Direct LDL Cholesterol 148.92 mg/dL (100-129)
[2020-05-20 19:16] LABS: T4 (Thyroxine) 8.9 ug/dl (5.53-11.0)
[2020-05-20 19:17] LABS: 25-OH Vitamin D, Total 17.8 ng/mL (30-100)
[2020-05-20 19:30] LABS: Thyroid Stimulating Hormone 1.97 uIU/mL (0.465-4.68)
== END ==
PROVIDERS: Visit Provider Emergency Medicine
DX: I10 Essential (primary) hypertension (principal); J45.909 Unspecified asthma, uncomplicated; K21.9 Gastro-esophageal reflux disease without esophagitis; R53.83 Other fatigue; E55.9 Vitamin D deficiency, unspecified; Z79.899 Other long term (current) drug therapy
CPT/HCPCS: 80053; 80061; 82306; 84436; 84443; 85025

== ENCOUNTER → 2020-06-10 16:25 | Outpatient (CLI) | payer OTHER, SELFPAY ==
[2020-06-10 16:58] LABS: Basophils # 0.2 K/mm3 (0-0.2); Eosinophils # 0.3 K/mm3 (0.0-0.4); Eosinophils % 2.1 % (0.1-12.0); Hematocrit 48.9 % (37.0-47.0); Hemoglobin 16.3 g/dL (12.2-16.2); Lymphocytes # 4.8 K/mm3 (0.7-4.5); Mean Corpuscular HGB Conc 33.4 g/dL (31.8-35.4); Mean Corpuscular Hemoglobin 31.9 pg (27.0-31.2); Mean Corpuscular Volume 95.5 fl (81-99); Monocytes # 0.5 K/mm3 (0.1-1.0); Monocytes % 3.5 % (1.7-9.3); Neutrophils # 8.3 K/mm3 (1.8-7.8); Neutrophils % 59.3 % (37.0-80.0); Platelet Count 328 K/mm3 (142-424); Red Blood Count 5.12 M/mm3 (4.20-5.40)
[2020-06-10 18:20] LABS: Chloride 105 mmol/L (98-107); Sodium 138 mmol/L (136-145)
[2020-06-10 18:21] LABS: Potassium 4.3 mmoL/L (3.5-5.1)
[2020-06-10 18:23] LABS: Alanine Aminotransferase 13 U/L (12-78); Alkaline Phosphatase 77 U/L (38-126); Anion Gap 12.3 mEq/L (5-15); Aspartate Amino Transferase 19 U/L (14-36); Bilirubin,Total 0.4 mg/dl (0.2-1.3); Blood Urea Nitrogen 10 mg/dl (7-17); Carbon Dioxide 25 mmol/L (22.0-30.0); Estimated Glomerular Filt Rate 79 ml/min (>60); GFR (African American) 96 ML/MIN (>60)
[2020-06-10 18:24] LABS: Albumin Level 4.3 g/dl (3.5-5.0); Albumin/Globulin Ratio 1.4 (1.1-1.8); Globulin 3.1 g/dL (1.3-3.2); Glucose 98 mg/dl (74-100); Total Protein,Serum 7.4 g/dl (6.3-8.2)
== END ==
PROVIDERS: Visit Provider Orthopaedic Surgery
DX: Z01.818 Encounter for other preprocedural examination (principal); G56.03 Carpal tunnel syndrome, bilateral upper limbs; M67.40 Ganglion, unspecified site
CPT/HCPCS: 36415; 80053; 85025

== ENCOUNTER → 2020-06-18 13:01 | Outpatient (CLI) | payer OTHER, SELFPAY ==
[2020-06-18 15:09] LABS: Coronavirus 19 IgG Antibody Negative (Negative); Coronavirus 19 IgM Antibody Negative (Negative)
== END ==
PROVIDERS: Visit Provider Orthopaedic Surgery
DX: Z01.818 Encounter for other preprocedural examination (principal); Z11.52 Encounter for screening for COVID-19
CPT/HCPCS: 36415; 86328

== ENCOUNTER 2020-06-20 06:10 | Day surgery (SDC) | payer OTHER, SELFPAY ==
[2020-06-17 13:13] VITALS: BMI 47.5
[2020-06-20] VITALS (14 sets, daily range): BP systolic 105–169; BP diastolic 56–83; PULSE 69–90; RESP 18–20; TEMP 36.2–43; O2SAT 93–98
[2020-06-20 06:23] LABS: HCG Qualitative, Serum Negative (Negative)
[2020-06-20 06:37] LABS: Basophils # 0.2 K/mm3 (0-0.2); Basophils % 1.2 % (0.1-2.0); Eosinophils # 0.3 K/mm3 (0.0-0.4); Eosinophils % 2.5 % (0.1-12.0); Hemoglobin 15.8 g/dL (12.2-16.2); Lymphocytes # 4.1 K/mm3 (0.7-4.5); Lymphocytes % 29.7 % (10-50); Mean Corpuscular HGB Conc 35.1 g/dL (31.8-35.4); Mean Corpuscular Hemoglobin 32.6 pg (27.0-31.2); Mean Corpuscular Volume 92.9 fl (81-99); Mean Platelet Volume 11.6 fl (7.4-10.4); Monocytes # 0.9 K/mm3 (0.1-1.0); Monocytes % 6.4 % (1.7-9.3); Neutrophils # 8.2 K/mm3 (1.8-7.8); Neutrophils % 60.1 % (37.0-80.0); Platelet Count 261 K/mm3 (142-424); Red Blood Count 4.84 M/mm3 (4.20-5.40); White Blood Count 13.7 K/mm3 (4.8-10.8)
--- NOTE | 2020-06-20 07:07 | HMH.ANESCL ---
[facility] Anesthesia Checklist - Patient Identification Patient Identification: Arm Band, Verbal (Name & ) - Structural Data Admitted From: Home Planned Operative Procedure/s: ctr Consent for Planned Operative Procedure(s) Verified: Yes Verified Documents: History and Physical - NPO Status Verified Time NPO: 00:00 - Additional verifications Patient : No Anesthesia Reactions: No Hx Blood Transfusions: No Blood Transfusion Reaction: No Cephalosporin Allergy: No Previous Colonoscopy: No - Cardiovascular Assessment Heart Sounds: S1 & S2 Pulse Strength: Baseline Pulse Rhythm: Regular Peripheral Edema: No - Airway Assessment C-Spine Mobility Assessed: Yes TMJ Mobility Assessed: Yes Dentition: Good Dentition - Neurological Assessment Level of Consciousness: Awake, Alert, Appropriate Hx Seizures: No Numbness or tingling in extremities: No - Anesthesia Plan Anesthesia Risk discussed: Yes Anesthesia Plan: Verified ASA Class: III Anesthesia Type: [facility] History I have reviewed the patient's past medical history: Yes Medical History: Reports:: Anxiety, Asthma, Congestive Heart Failure, Chronic Obstructive Pulmonary Disease (COPD), Depression, Gastroesophageal Reflux Disease(GERD), Hyperlipidemia, Hypertension Denies:: Cancer, Diabetes Mellitus Type 1, Diabetes Mellitus Type 2, Internal Pacemaker, MRSA, Seizures *Have you ever received a pneumonia vaccine?: No *Have you received a flu vaccine this season?: Yes Other Medical History: Denies: Blood Transfusion Reaction Anesthesia experience/problems:: none Laterality Cases: Bilateral: Tonsillectomy Other Surgeries: Yes: Cardiac Catheterization, Cholecystectomy, Colonoscopy, , Other (Sinus). No: Pacemaker Amputation: No Fractures: No - *Social History Last grade of school completed: 9th or 10th Smoking Status: Current every day smoker Tobacco Type: cigarettes # Packs/Day (cigarettes): 1 Alcohol Intake: never Substance Use Type: denies use *Occupational Status:: employed Housing: house Household Members: spouse *Travel in the last 8 weeks: None - Psychiatric History Pschychiatric History:: Reports:: Anxiety, Depression Family Hx:: Stroke, Heart Attack, Hyperlipidemia, Hypertension, Cancer
--- NOTE | 2020-06-20 08:43 | HMH.ANESI ---
[facility] Anesthesia Record Part I Intake, IV Amount: 750 Estimated blood loss (mL): 5 Urine output (mL): 0 Blood Products used (#): none Blood Pressure: 169/75 SaO2: 93 Pulse Rate: 90 Respiratory Rate: 20 Temperature: 97.5 F Patient is:: Drowsy, Stable Stable to PACU at:: 08:39
--- NOTE | 2020-06-20 09:11 | HMH.OPNOTE ---
Date of procedure: 06/20/20 Pre-op Diagnosis:: Right upper extremity: 1) carpal tunnel syndrome 2) ganglion cyst Post-op Diagnosis:: Right upper extremity: 1) carpal tunnel syndrome 2) ganglion cyst Procedure performed:: Right upper extremity: 1) carpal tunnel release 2) ganglion cyst excision Surgeon:: Geri Rogers MD Marine Cargo Specialist(s):: Kristine Leigh ROLL WEIGHER:: Willard Montana Anesthesia: local, LMA Estimated blood loss (mL): 5 Clinical Note:: 40-year-old [id number] female with complaints of pain, numbness and tingling in the right upper extremity present for several years. I initially saw her in 2018 for the same issue, at which time EMG?NCS showed mild carpal tunnel syndrome. She did not wish to pursue surgical treatment at that time. She has tried taking gabapentin and wearing braces on her wrist at night but these have not improved her symptoms. They frequently wake her at night. She denies a history of thyroid disease or diabetes. She is interested in carpal tunnel release at this time. Updated EMG-NCS was obtained in February 2020 of bilateral upper extremities, which demonstrated BUE mild carpal tunnel syndrome. She also reports the presence of a painful mass over the radial aspect of the right wrist, mobile and fluctuating in size. She wishes to proceed with CTR and have the cyst removed at the same time. The clinical appearance is consistent with a ganglion cyst. I discussed the risks of surgery with the patient, including bleeding, infection, neurovascular damage, wound healing complications, postoperative pain and stiffness, recurrence of carpal tunnel. The patient vocalized understanding of the risks of surgery and informed consent was obtained. Of note, her pre-operative WBC was 14; rechecked this morning and was 13. She reports a recent sinus infection and hip pain, treated with a short course of steroids, but she believes it's been around a month since she's taken any steroids. No complaints of chest pain, shortness of breath, abdominal pain, or dysuria. Lungs were clear to auscultation in pre-op. We decided to proceed with surgery, but I would like her to follow-up with her PCP in the next week. Operative findings:: median nerve compression at R wrist radial-sided mass R wrist, appearance c/w ganglion Operative note:: The patient was identified in preoperative holding and the R wrist signed by myself. She was then seen by anesthesia and the decision was made to perform the surgery with general anesthesia using an LMA. I reviewed the consent with the patient and all questions were answered. The patient was then taken to the OR where she was placed supine on the operative table with a hand table attached. 2g of Ancef were infused intravenously and general anesthesia induced. A non-sterile tourniquet was placed on the upper R arm, which was then prepped and draped in the usual sterile fashion. Timeout was performed, identifying the correct patient, correct procedure, and correct site. The procedure was begun by using anatomic landmarks to draw the desired surgical incisions with marking pen. The carpal tunnel incision was drawn over the volar aspect of the R wrist at the intersection of Cox's cardinal line and the radial border of the ring finger, extending proximally to the wrist flexion crease. The ganglion cyst was palpated over the radial aspect of the R wrist, just proximal to the radial styloid. A longitudinal incision was drawn directly overlying the mass, approximately 0.5cm long. The R arm was then exsanguinated with an Esmarch and the tourniquet inflated to 250mmHg. Incision was made with a 15 blade over the previously delineated incision at the carpal tunnel. After the skin was incised, a blunt-tipped tenotomy scissors was used to bluntly spread the subcutaneous tissue. Tissue was spread until the transverse carpal ligament was identified. The proximal margin of the ligament was palpated with a Polk elevator.
--- NOTE | 2020-06-20 10:12 | P.PN_ITS ---
[facility] Anesthesia Record Part II Discharge Time: 09:09 Destination: Surgical Day Care (OP Surgery) PACU nurse assessment reviewed?: Yes Patient Condition:: Good Anesthesia Complications:: None Swallowing reflex intact?: Yes Cyanosis?: No Blood Pressure: 115/83 Pulse Rate: 74 Temperature: 97.5 F Mental Status: Alert & Oriented Pain level:: 4 Nausea and/or vomitting:: None Intake, IV Amount: 50
== END 2020-06-20 09:55 | disposition home or self-care (01) ==
LOC: OR 06:11
PROVIDERS: PCP Emergency Medicine; Visit Provider Orthopaedic Surgery
PROC: (CPT 64721; principal; 2020-06-20 07:30)
DX: G56.01 Carpal tunnel syndrome, right upper limb (principal); M67.431 Ganglion, right wrist
CPT/HCPCS: 64721; 25111; 84703; 85025; 96374

== ENCOUNTER → 2020-09-13 13:22 | Outpatient (CLI) | payer OTHER, SELFPAY ==
--- NOTE | 2020-09-13 13:24 | XR_ITS ---
PROCEDURE: XR HIP LT 2-3V W/PELVIS CLINICAL INDICATION: Left hip pain COMPARISON: No exams were available for comparison FINDINGS: No fracture or dislocation is evident. No significant degenerative change. No lytic or blastic change. Unremarkable soft tissues. IMPRESSION: Negative left hip Dictated by: Barrie Kwong MD 09/13/2020 18:04 Barrie Kwong MD in [place] 09/13/2020 18:04
== END ==
PROVIDERS: PCP Emergency Medicine; Visit Provider Orthopaedic Surgery
DX: M25.552 Pain in left hip (principal)
CPT/HCPCS: 73502

== ENCOUNTER 2020-11-13 17:48 | Emergency (ER) | payer OTHER, SELFPAY ==
[2020-11-13 17:55] VITALS: BP 140/70; PULSE 87; RESP 16; TEMP 36.4; O2SAT 100; BMI 46.0
--- NOTE | 2020-11-13 18:20 | HMH.EDUTC ---
[facility] [place] [facility] Disposition Clinical Impression: Shingles Qualifiers: Herpes zoster complications: without complications Qualified Code(s): B02.9 - Zoster without complications Disposition: Home, Self-Care Condition on Discharge: Good Instructions: DI for Shingles, Shingles, Acyclovir Additional Instructions: Take Medication as prescribed This is contagious be careful around children and elderly May need to cover rash until it is drying up Follow up with your Family Doctor if no improvement or any worsening of symptoms Make sure to let your work know Keep your rash clean and dry. Cover your rash with a bandage or clothing. Do not use bandages that stick to your skin. The sticky part may irritate your skin and make your rash last longer. Wash your hands often. Wash your hands several times each day. Stay away from others while you are sick. Avoid crowds as much as possible. Prescriptions: Acyclovir 800 mg PO 5XDAY 7 Days #35 tab Prescription Printed Referrals: Leroy Martínez MD [Primary Care Provider] - As needed Time of Disposition: 18:47 Medical Decision Making - Bill Inquiry Pt receiving controlled substance: No Bill was queried for this patient: No Vital Signs: 11/13/20 17:55 Temperature 97.6 F Temperature Source Temporal Artery Scan Pulse Rate [Right] 87 Respiratory Rate 16 Blood Pressure [Right Arm] 140/70 Blood Pressure Mean [Right Arm] 93 02 Sat by Pulse Oximetry 100 Oxygen Delivery Method Room Air [facility] [place] [facility] HPI - General Stated complaint: Rash right side Time Seen by Provider: 11/13/20 18:20 Mode of Arrival: Ambulatory Source of Information: Patient Limitations: No Limitations Description of Symptoms (Recalled from Triage Doc. by RN): pt has a rash on her R upper side where the bra wraps around your back. it appears dry and scaly and has a burning sensation. HEENT Symptoms (Recalled from RN notes): No Resp Symptoms (Recalled from RN notes): No Skin Symptoms (Recalled from RN notes): Yes (rash on upper R side) MS Symptoms (Recalled from RN notes): No Functional Status (Recalled from RN notes): na - History of Present Illness Provider Complaint: Patient states that she was having a burning and itchy like feeling last night and feeling like stinging area on right side just below bra strap States that today she went to work and it continued and she noticed she had a rash there on her right side States that someone looked at it and said it looked like shingles so she came in - Related Data Home Medications Medication Instructions Recorded Confirmed Furosemide [Furosemide 20mg Tab*] 20 mg PO DAILY 12/22/19 08/16/20 Previous Rx's Medication Instructions Recorded atorvastatin 10 mg tablet 10 mg PO QHS #30 tab 05/22/20 ergocalciferol (vitamin D2) 1,250 50,000 unit PO QWEEK #7 cap 05/22/20 mcg (50,000 unit) capsule fluticasone propionate 50 1 spray INTRANASAL QDAY #9.9 ml 05/22/20 mcg/actuation nasal spray,suspension metoprolol tartrate 50 mg tablet 50 mg PO DAILY #30 tab 05/22/20 montelukast 10 mg tablet 10 mg PO QHS #30 tab 05/22/20 gabapentin 800 mg tablet 800 mg PO QID 30 Days #120 tab 08/16/20 hydrocodone 5 mg-acetaminophen 325 1 tab PO DAILY PRN #30 tab 08/16/20 mg tablet albuterol sulfate 90 mcg/actuation See Rx Instructions .ROUTE 09/17/20 aerosol inhaler .COMPLEX #18 g omeprazole 40 mg capsule,delayed See Rx Instructions .ROUTE 10/10/20 release .COMPLEX #30 cap Acyclovir 800 mg PO 5XDAY 7 Days #35 tab 11/13/20 Allergies Allergy/AdvReac Type Severity Reaction Status Date / Time morphine Allergy Intermediate I-RASH Verified 11/13/20 18:02 - Worker's Comp Is this a Worker's Comp case?: No [facility] History - Hepatitis A Screen Drug use history?: No High risk sexual behaviors?: No History of sexually transmitted infection?: No Currently employed?: No Childcare worker?: No Do you have indoor plumbing?: Yes Do you have electricity?: Yes Attestation statement::
[2020-11-13 18:58] VITALS: BP 137/87; PULSE 85; RESP 18; TEMP 36.7
== END 2020-11-13 19:01 | disposition home or self-care (01) ==
PROVIDERS: Emergency Provider Nurse Practitioner; PCP Emergency Medicine
DX: B02.9 Zoster without complications (principal); F41.8 Other specified anxiety disorders; J44.9 Chronic obstructive pulmonary disease, unspecified; I50.9 Heart failure, unspecified; K21.9 Gastro-esophageal reflux disease without esophagitis; I10 Essential (primary) hypertension; E78.5 Hyperlipidemia, unspecified; F17.210 Nicotine dependence, cigarettes, uncomplicated; Z88.5 Allergy status to narcotic agent; Z79.899 Other long term (current) drug therapy
CPT/HCPCS: 99202; G0463

== ENCOUNTER → 2021-01-22 16:15 | Outpatient (CLI) | payer OTHER, SELFPAY | PROVIDERS: PCP Emergency Medicine; Visit Provider Emergency Medicine | DX: Z20.822 Contact with and (suspected) exposure to COVID-19 (principal); U07.1 COVID-19 | CPT/HCPCS: U0003 ==

== ENCOUNTER → 2021-04-07 14:00 | Outpatient (CLI) | payer OTHER, SELFPAY ==
[2021-04-07 14:43] LABS: Amphetamine/Metha Screen,Urine Negative ng/ml (<1000); Barbiturates Screen,Urine Negative ng/ml (<200)
[2021-04-07 14:44] LABS: Benzodiazepines Screen,Urine Negative ng/ml (<200)
[2021-04-07 14:45] LABS: Cannabinoid Screen,Urine Positive ng/ml (<50); Cocaine Screen,Urine Negative ng/ml (<300)
[2021-04-07 14:46] LABS: Methadone Screen,Urine Negative ng/ml (<300); Opiate Screen,Urine Positive ng/ml (<300)
[2021-04-07 14:47] LABS: Phencyclidine Screen,Urine Negative ng/ml (<25)
== END ==
PROVIDERS: Visit Provider Emergency Medicine
DX: Z79.899 Other long term (current) drug therapy (principal)
CPT/HCPCS: 80305

== ENCOUNTER → 2021-06-03 14:10 | Outpatient (CLI) | payer OTHER, SELFPAY ==
[2021-06-03 15:58] LABS: Barbiturates Screen,Urine Negative ng/ml (<200)
[2021-06-03 15:59] LABS: Cannabinoid Screen,Urine Positive ng/ml (<50)
[2021-06-03 16:00] LABS: Cocaine Screen,Urine Negative ng/ml (<300)
[2021-06-03 16:01] LABS: Methadone Screen,Urine Negative ng/ml (<300); Opiate Screen,Urine Positive ng/ml (<300)
[2021-06-03 16:02] LABS: Phencyclidine Screen,Urine Negative ng/ml (<25)
[2021-06-03 16:14] LABS: Amphetamine/Metha Screen,Urine Negative ng/ml (<1000)
[2021-06-03 16:15] LABS: Benzodiazepines Screen,Urine Negative ng/ml (<200)
== END ==
PROVIDERS: Visit Provider Emergency Medicine
DX: Z79.899 Other long term (current) drug therapy (principal)
CPT/HCPCS: 80305

== ENCOUNTER 2021-06-10 13:47 | Emergency (ER) | payer OTHER, SELFPAY ==
[2021-06-10 15:10] VITALS: BP 131/81; PULSE 86; RESP 19; TEMP 37.1; O2SAT 99; BMI 42.5
--- NOTE | 2021-06-10 15:23 | HMH.EDUTC ---
[facility] [place] Condition on Discharge: Good <Haroon Santizo - Last Filed: 06/10/21 17:54> Time of Disposition: 15:34 <Codie Hicks - Last Filed: 06/10/21 21:39> Clinical Impression: Abdominal pain Qualifiers: Abdominal location: left upper quadrant Qualified Code(s): R10.12 - Left upper quadrant pain Abdominal wall strain Qualifiers: Encounter type: initial encounter Qualified Code(s): S39.011A - Strain of muscle, fascia and tendon of abdomen, initial encounter Disposition: Home, Self-Care Instructions: DI for Abdominal Muscle Strain Referrals: Leroy Martínez MD [Primary Care Provider] - Medical Decision Making - Medical Records Medical records reviewed: Yes: I reviewed the patient's medical records. - Lab Data Result diagrams: 06/10/21 15:59 06/10/21 15:59 - CT Data CT Scan: Abdomen, Pelvis Time Received: 17:[address] Reviewed: Yes: I have reviewed the patient's CT results, I have viewed the radiologist's interpretation Preliminary Findings: Normal/NAD - Reevaluation(s) Time: 17:55 <Haroon Santizo - Last Filed: 06/10/21 17:54> - Bill Inquiry Pt receiving controlled substance: No Bill was queried for this patient: No - Lab Data Lab results reviewed: Yes: I reviewed the patient's lab results. Result diagrams: 06/10/21 15:59 06/10/21 15:59 <Codie Hicks - Last Filed: 06/10/21 21:39> Vital Signs: 06/10/21 15:10 06/10/21 15:47 06/10/21 16:30 Temperature 98.7 F Temperature Source Oral Pulse Rate 72 Pulse Rate [Right Radial] 86 78 Respiratory Rate 19 16 Blood Pressure 122/69 Blood Pressure [Right Arm] 131/81 122/69 Blood Pressure Mean [Right Arm] 97 86 Blood Pressure Source Blood Pressure Source [Right Arm] Automatic Cuff Manual Cuff/ Palpation Blood Pressure Position Blood Pressure Position [Right Arm] Sitting Sitting 02 Sat by Pulse Oximetry 99 98 97 Oxygen Delivery Method Room Air Room Air 06/10/21 17:31 06/10/21 18:01 06/10/21 19:00 Temperature 98.1 F Temperature Source Oral Pulse Rate 74 72 72 Pulse Rate [Right Radial] Respiratory Rate 20 Blood Pressure 125/77 120/50 L 120/50 L Blood Pressure [Right Arm] Blood Pressure Mean [Right Arm] Blood Pressure Source Automatic Cuff Blood Pressure Source [Right Arm] Blood Pressure Position Sitting Blood Pressure Position [Right Arm] 02 Sat by Pulse Oximetry 98 98 Oxygen Delivery Method Room Air - Lab Data Lab Results 06/10/21 15:10: Urine Color Yellow, Urine Appearance Clear, Urine pH 6.0, Ur Specific [place] >= 1.030, Urine Protein Negative, Urine Glucose (UA) Negative, Urine Ketones Negative, Urine Blood Negative, Urine Nitrate Negative, Urine Bilirubin Negative, Urine Urobilinogen 0.2, Ur Leukocyte Esterase Negative, Urine RBC Occasional, Urine WBC 3-5, Ur Squamous Epith Cells 5-10, Urine Bacteria Trace 06/10/21 15:10: Urine HCG, Qual Negative 06/10/21 15:19: Urine Color Yellow, Urine Appearance Clear, Urine pH 5.5, Ur Specific [place] 1.030, Urine Protein Negative, Urine Glucose (UA) Negative, Urine Ketones Negative, Urine Blood Negative, Urine Nitrate Negative, Urine Bilirubin Negative, Urine Urobilinogen 0.2, Ur Leukocyte Esterase Negative 06/10/21 15:59: WBC 14.0 H, RBC 4.78, Hgb 15.1, Hct 46.8, MCV 97.8, MCH 31.7 H, MCHC 32.4, RDW 12.5, Plt Count 309, MPV 9.9, Neut % (Auto) 65.1, Lymph % (Auto) 26.3, [place] % (Auto) 4.8, Eos % (Auto) 2.1, Baso % (Auto) 1.7, Neut # (Auto) 9.1 H, Lymph # (Auto) 3.7, [place] # (Auto) 0.7, Eos # (Auto) 0.3, Baso # (Auto) 0.2 06/10/21 15:59: Sodium 138, Potassium 4.0, Chloride 104, Carbon Dioxide 29, Anion Gap 9.0, BUN 10, Creatinine 0.90, Estimated Creat Clear 71, Estimated GFR 69, Est GFR ( Amer) 83, Glucose 109 H, Calcium 8.9, Total Bilirubin 0.3, AST 21, ALT 14, Alkaline Phosphatase 61, Troponin I < 0.01, Total Protein 6.9, Albumin 4.1, Globulin 2.8, Albumin/Globulin Ratio 1.5, Lipase 36 Orders (Tests/Meds): ED MEDICATIONS
[2021-06-10 15:33] LABS: Apearance,Urine Clear (Clear); Color,Urine Yellow (Yellow); Glucose,Urine (UA) Negative (Negative); PH,Urine 5.5 (5.0-8.5); Protein,Urine Negative (Negative)
[2021-06-10 15:34] LABS: Bilirubin,Urine Negative (Negative); Blood, Urine Negative (Negative); Ketones,Urine Negative (Negative); UTC Leukocyte Esterase,Urine Negative (Negative); UTC Nitrate,Urine Negative (Negative); Urobilinogen,Urine 0.2 EU/dl (0.2)
--- NOTE | 2021-06-10 15:37 | PC.NURSE ---
Sent to ED for further eval. Report given to Hilda Awad RN
[2021-06-10 15:47] VITALS: BP 122/69; PULSE 78; RESP 16; O2SAT 98; BMI 42.5
[2021-06-10 16:08] LABS: Basophils # 0.2 K/mm3 (0-0.2); Basophils % 1.7 % (0.1-2.0); Eosinophils # 0.3 K/mm3 (0.0-0.4); Eosinophils % 2.1 % (0.1-12.0); Hematocrit 46.8 % (37.0-47.0); Hemoglobin 15.1 g/dL (12.2-16.2); Lymphocytes # 3.7 K/mm3 (0.7-4.5); Lymphocytes % 26.3 % (10-50); Mean Corpuscular HGB Conc 32.4 g/dL (31.8-35.4); Mean Corpuscular Hemoglobin 31.7 pg (27.0-31.2); Mean Corpuscular Volume 97.8 fl (81-99); Mean Platelet Volume 9.9 fl (7.4-10.4); Monocytes # 0.7 K/mm3 (0.1-1.0); Monocytes % 4.8 % (1.7-9.3); Neutrophils # 9.1 K/mm3 (1.8-7.8); Neutrophils % 65.1 % (37.0-80.0); Platelet Count 309 K/mm3 (142-424); Red Blood Count 4.78 M/mm3 (4.20-5.40); Red Cell Distribution Width 12.5 % (11.5-17.5)
[2021-06-10 16:20] LABS: Microscopic, Urine URINE MICROSCOPIC (MICROSCOPIC)
[2021-06-10 16:21] LABS: Chloride 104 mmol/L (98-107); Sodium 138 mmol/L (136-145)
[2021-06-10 16:24] LABS: Alanine Aminotransferase 14 U/L (12-78); Albumin Level 4.1 g/dl (3.5-5.0); Albumin/Globulin Ratio 1.5 (1.1-1.8); Alkaline Phosphatase 61 U/L (38-126); Aspartate Amino Transferase 21 U/L (14-36); Bilirubin,Total 0.3 mg/dl (0.2-1.3); Blood Urea Nitrogen 10 mg/dl (7-17); Calcium 8.9 mg/dl (8.4-10.2); Carbon Dioxide 29 mmol/L (22.0-30.0); Creatinine Clearance Estimated 71 mL/min (50-200); Estimated Glomerular Filt Rate 69 ml/min (>60); GFR (African American) 83 ML/MIN (>60); Globulin 2.8 g/dL (1.3-3.2); Glucose 109 mg/dl (74-100); Lipase 36 U/L (23-300); Total Protein,Serum 6.9 g/dl (6.3-8.2)
[2021-06-10 16:28] LABS: Appearance,Urine CLEAR (Clear); Bilirubin,Urine Negative (Negative); Blood, Urine Negative (Negative); Color,Urine YELLOW (Yellow); Glucose,Urine (UA) Negative (Negative); Ketones,Urine Negative (Negative); Leukocyte Esterase,Urine Negative (Negative); Nitrate,Urine Negative (Negative); Protein,Urine Negative (Negative); Specific Gravity, Urine >= 1.030 (1.005-1.030); Urobilinogen,Urine 0.2 EU/dl (0.2)
[2021-06-10 16:30] VITALS: BP 122/69; PULSE 72; O2SAT 97
[2021-06-10 16:32] LABS: Urine Pregnancy, HCG Qual. Negative (Negative)
[2021-06-10 16:37] LABS: Troponin I < 0.01 ng/ml (0.00-0.034)
--- NOTE | 2021-06-10 16:42 | CT_ITS ---
PROCEDURE INFORMATION: Exam: CT Abdomen And Pelvis With Contrast Exam date and time: 06/10/2021 4:42 PM Age: 40 years old Clinical indication: Abdominal pain; Prior surgery; Surgery date: 6+ months; Surgery type: Gallbladder removed TECHNIQUE: Imaging protocol: Computed tomography of the abdomen and pelvis with contrast. Radiation optimization: All CT scans at this facility use at least one of these dose optimization techniques: automated exposure control; mA and/or kV adjustment per patient size (includes targeted exams where dose is matched to clinical indication); or iterative reconstruction. Contrast material: ISOVUE; Contrast volume: 70 ml; Contrast route: IV; COMPARISON: ABDPELW CT ABD PELVIS W/ CONTRAST 10/21/2015 9:49 AM FINDINGS: Liver: No mass. Gallbladder and bile ducts: Cholecystectomy. No biliary ductal dilatation. Pancreas: Normal. No ductal dilation. Spleen: Normal. No splenomegaly. Adrenal glands: Normal. No mass. Kidneys and ureters: Normal. No hydronephrosis. Stomach and bowel: No acute findings. No obstruction. No mucosal thickening. Minimal colonic diverticulosis without acute diverticulitis. Appendix: No evidence of appendicitis. Intraperitoneal space: Unremarkable. No free air. No significant fluid collection. Vasculature: No abdominal aortic aneurysm. Lymph nodes: No significant adenopathy. Urinary bladder: Unremarkable as visualized. Reproductive: No acute findings. Bones/joints: No acute findings. Soft tissues: Unremarkable. IMPRESSION: No acute findings.
[2021-06-10 16:48] LABS: Bacteria,Urine Trace /lpf; RBC,Urine Occasional #/hpf (0-3)
[2021-06-10 17:31] VITALS: BP 125/77; PULSE 74; O2SAT 98
[2021-06-10 18:01] VITALS: BP 120/50; PULSE 72; O2SAT 98
[2021-06-10 19:00] VITALS: BP 120/50; PULSE 72; RESP 20; TEMP 36.7; O2SAT 98
== END 2021-06-10 19:02 | disposition home or self-care (01) ==
LOC: UTC 15:34 → ER 15:36
PROVIDERS: Nurse Practitioner; Emergency Provider Emergency Medicine; PCP Emergency Medicine
DX: S39.011A Strain of muscle, fascia and tendon of abdomen, initial encounter (principal); J44.9 Chronic obstructive pulmonary disease, unspecified; I10 Essential (primary) hypertension; E78.5 Hyperlipidemia, unspecified; F17.210 Nicotine dependence, cigarettes, uncomplicated
CPT/HCPCS: 74177; 80053; 81001; 81003; 81025; 83690; 84484; 85025; 96365; 96375; 99283; Q9967

== ENCOUNTER → 2021-06-27 13:50 | Outpatient (CLI) | payer OTHER, SELFPAY ==
--- NOTE | 2021-06-27 13:55 | XR_ITS ---
FINAL REPORT CLINICAL HISTORY: elbow pain FINDINGS: RIGHT ELBOW 3 views were obtained. There is no acute fracture or dislocation. There is no joint effusion. The joint spaces are intact. There is no soft tissue abnormality. IMPRESSION: No acute process. Reviewed, Interpreted and Dictated by Pepe Thompson MD Transcribed by Shaji Cartwright Authenticated by Pepe Thompson MD on 06/27/2021 02:51:10 PM [facility]
== END ==
PROVIDERS: PCP Emergency Medicine; Visit Provider Orthopaedic Surgery
DX: M25.521 Pain in right elbow (principal)
CPT/HCPCS: 73080

== ENCOUNTER → 2021-07-29 14:46 | Outpatient (CLI) | payer OTHER, SELFPAY ==
[2021-07-29 15:17] LABS: Amphetamine/Metha Screen,Urine Negative ng/ml (<1000)
[2021-07-29 15:18] LABS: Barbiturates Screen,Urine Negative ng/ml (<200)
[2021-07-29 15:19] LABS: Benzodiazepines Screen,Urine Negative ng/ml (<200)
[2021-07-29 15:20] LABS: Cannabinoid Screen,Urine Positive ng/ml (<50)
[2021-07-29 15:21] LABS: Cocaine Screen,Urine Negative ng/ml (<300); Methadone Screen,Urine Negative ng/ml (<300)
[2021-07-29 15:22] LABS: Opiate Screen,Urine Positive ng/ml (<300)
[2021-07-29 15:23] LABS: Phencyclidine Screen,Urine Negative ng/ml (<25)
== END ==
PROVIDERS: Visit Provider Emergency Medicine
DX: Z79.899 Other long term (current) drug therapy (principal)
CPT/HCPCS: 80305

== ENCOUNTER → 2021-08-26 16:00 | Outpatient (CLI) | payer OTHER, SELFPAY ==
[2021-08-26 18:20] LABS: Amphetamine/Metha Screen,Urine Negative ng/ml (<1000)
[2021-08-26 18:21] LABS: Barbiturates Screen,Urine Negative ng/ml (<200)
[2021-08-26 18:22] LABS: Benzodiazepines Screen,Urine Negative ng/ml (<200); Cannabinoid Screen,Urine Positive ng/ml (<50)
[2021-08-26 18:23] LABS: Cocaine Screen,Urine Negative ng/ml (<300); Methadone Screen,Urine Negative ng/ml (<300)
[2021-08-26 18:24] LABS: Opiate Screen,Urine Negative ng/ml (<300)
[2021-08-26 18:25] LABS: Phencyclidine Screen,Urine Negative ng/ml (<25)
== END ==
PROVIDERS: Visit Provider Emergency Medicine
DX: Z79.899 Other long term (current) drug therapy (principal)
CPT/HCPCS: 80305

== ENCOUNTER → 2021-09-17 09:28 | Outpatient (CLI) | payer OTHER, SELFPAY ==
[2021-09-17 18:23] LABS: Benzodiazepines Screen,Urine Negative ng/ml (<200)
[2021-09-17 18:24] LABS: Amphetamine/Metha Screen,Urine Negative ng/ml (<1000)
[2021-09-17 18:25] LABS: Barbiturates Screen,Urine Negative ng/ml (<200); Cannabinoid Screen,Urine Positive ng/ml (<50)
[2021-09-17 18:26] LABS: Cocaine Screen,Urine Negative ng/ml (<300); Methadone Screen,Urine Negative ng/ml (<300)
[2021-09-17 18:27] LABS: Opiate Screen,Urine Positive ng/ml (<300)
[2021-09-17 18:28] LABS: Phencyclidine Screen,Urine Negative ng/ml (<25)
== END ==
PROVIDERS: Visit Provider Emergency Medicine
DX: M54.9 Dorsalgia, unspecified (principal); G62.9 Polyneuropathy, unspecified
CPT/HCPCS: 80305

== ENCOUNTER → 2021-10-13 13:01 | Outpatient (CLI) | payer OTHER, SELFPAY ==
--- NOTE | 2021-10-13 13:03 | MR_ITS ---
FINAL REPORT CLINICAL HISTORY: back pain. left sided back, hip and leg pain [id number]. no injury or trauma. FINDINGS: Multiplanar MR imaging of the lumbar spine was performed without contrast. On the sagittal T2-weighted images, disc degeneration is seen at multiple levels. The vertebral alignment is normal. There is no evidence of fracture. No bony mass is identified. The conus has an unremarkable appearance. No significant canal stenosis is identified. L1-2: There is no significant canal stenosis or neural foraminal narrowing. L2-3: An annular bulge is present. There is a left foraminal disc protrusion. There is mild right and moderate left neural foraminal narrowing. L3-4: An annular bulge is present. There is a left foraminal disc protrusion. There is mild right and moderate left neural foraminal narrowing. L4-5: An annular bulge is present. There is a right foraminal disc protrusion. There is moderate right and mild left neural foraminal narrowing. L5-S1: There is no significant canal stenosis or neural foraminal narrowing. IMPRESSION: Disc protrusions at L2-L3, L3-L4, and L4-L5 with associated neural foraminal narrowing. No significant central canal stenosis. Reviewed, Interpreted and Dictated by Don Moeller III, MD Transcribed by Shaji Cartwright Authenticated by Don Moeller III, MD on 10/13/2021 03:11:01 PM [facility]
== END ==
PROVIDERS: PCP Emergency Medicine; Visit Provider Emergency Medicine
DX: M54.9 Dorsalgia, unspecified (principal); M54.50 Low back pain, unspecified
CPT/HCPCS: 72148; 76376

== ENCOUNTER 2021-11-08 20:56 | Emergency (ER) | payer OTHER, SELFPAY ==
[2021-11-08 21:34] VITALS: BP 147/83; PULSE 73; RESP 16; TEMP 36.6; O2SAT 98; BMI 40.2
--- NOTE | 2021-11-08 21:58 | HMH.EDGENADL ---
ED Disposition Clinical Impression: Strain of lumbar region, Sciatica, Wound of skin Disposition: Home, Self-Care Condition on Discharge: Good Instructions: DI for Low Back Pain Additional Instructions: Continue to take your home pain medicine as well as supplementing with ibuprofen and Robaxin for muscle spasm. Prescriptions: methocarbamoL [Methocarbamol] 750 mg PO TID PRN 5 Days #15 tab PRN Reason: spasm Transmission Status: Pending to [facility] Referrals: Leroy Martínez MD [Primary Care Provider] - - Critical Care Critical Care Time: No Attestation: On 11/08/21, the high probability of a clinically significant, sudden or life threatening deterioration of the following system(s) required my full and direct attention, intervention and personal management. The time I documented below is in addition to time spent performing reported procedures but includes the following listed in this critical care notation. Medical Decision Making - Medical Records Medical records reviewed: Yes: I reviewed the patient's medical records. - Bill Inquiry Pt receiving controlled substance: No Vital Signs: 11/08/21 21:34 Temperature 98 F Temperature Source Oral Pulse Rate [Right Brachial] 73 Respiratory Rate 16 Blood Pressure [Right Arm] 147/83 H Blood Pressure Mean [Right Arm] 104 Blood Pressure Source [Right Arm] Automatic Cuff Blood Pressure Position [Right Arm] Supine 02 Sat by Pulse Oximetry 98 Oxygen Delivery Method Room Air Orders (Tests/Meds): ED MEDICATIONS Generic Name Dose Route Start Last Admin Trade Name Freq PRN Reason Stop Dose Admin Methocarbamol 1,000 mg 11/09/21 22:34 Methocarbamol 500mg Tablet PO 11/09/21 22:35 BID ONE Discontinued Medications Generic Name Dose Route Start Last Admin Trade Name Freq PRN Reason Stop Dose Admin Acetaminophen 1,000 mg 11/08/21 22:33 Acetaminophen 500mg Tab PO 11/08/21 22:34 ONCE ONE Diazepam 5 mg 11/08/21 22:33 Diazepam 5mg Tablet PO 11/08/21 22:34 ONCE ONE Ketorolac Tromethamine 15 mg 11/08/21 22:33 Ketorolac 30mg/Ml Vial IV 11/08/21 22:34 ONCE ONE Medical Decision Narrative: 41-year-old female who presents with multiple complaints. In regards to the ears they are both intact clear and have no obvious abnormalities. In regards to the wound on her left arm it appears to have been some type of break in the skin that is now partially healed and appears to have been scratched or excoriated. Have no concern for associated with cellulitis or abscess at this time. There is no compressive symptoms related to her chronic back pain. It is all consistent with sciatica and lower back strain will be treated with 50 mg Toradol, 1 g Tylenol p.o., 1 g Robaxin p.o., and 5 mg Valium p.o. General Adult HPI - General Chief complaint: Back Pain/Injury Stated complaint: left hip,left leg pain, poss spider bite Time Seen by Provider: 11/08/21 21:58 Mode of Arrival: Ambulatory Limitations: No Limitations Description of Symptoms (Recalled from ER Triage Doc. by RN): PATIENT REPORTS BLOODY DRAINAGE TO RIGHT EAR X 2 DAYS, REPORTS POSSIBLE SPIDER BITE TO LEFT FOREARM X 3 DAYS. REPORTS PAIN TO BACK AND LEFT LEG, STATES SEEN A SURGEON ON WEDNESDAY FOR L2 AND L3 DISK HERINATION. APPOINTMENT SCHEDULED FOR PAIN MANAGEMENT. TAKE LORATAB 5 MG AND GABENPTIN 800 QID, NOT HELPING. - History of Present Illness HPI narrative: 41-year-old female presents for exacerbation of her chronic back pain and sciatica as well as reports of painful ear earlier in the week that had bled at that time and a wound on her forearm on the left that she wants evaluated. States that she typically takes Lortab for her back pain. She denies saddle anesthesia, urinary retention or incontinence, weakness in her legs. States that it is flared up and been uncomfortable for 4 to 5 days now. She has had no change in her hearing denies respiratory sym
[2021-11-08 23:35] VITALS: BP 140/82; PULSE 88; RESP 18; TEMP 36.9; O2SAT 99
== END 2021-11-08 23:37 | disposition home or self-care (01) ==
PROVIDERS: Emergency Provider Student in an Organized Health Care Education/Training Program; PCP Emergency Medicine
DX: M54.40 Lumbago with sciatica, unspecified side (principal); M62.838 Other muscle spasm; M51.26 Other intervertebral disc displacement, lumbar region; M25.552 Pain in left hip; M79.605 Pain in left leg; H92.11 Otorrhea, right ear; I11.0 Hypertensive heart disease with heart failure; I50.9 Heart failure, unspecified; K21.9 Gastro-esophageal reflux disease without esophagitis; E78.5 Hyperlipidemia, unspecified; G89.29 Other chronic pain; G47.33 Obstructive sleep apnea (adult) (pediatric); J44.9 Chronic obstructive pulmonary disease, unspecified; E66.01 Morbid (severe) obesity due to excess calories; F32.A Depression, unspecified; F41.9 Anxiety disorder, unspecified; F17.210 Nicotine dependence, cigarettes, uncomplicated; Z79.51 Long term (current) use of inhaled steroids; Z79.899 Other long term (current) drug therapy; Z88.5 Allergy status to narcotic agent; Z68.41 Body mass index [BMI] 40.0-44.9, adult; Z82.49 Family history of ischemic heart disease and other diseases of the circulatory system; Z83.438 Family history of other disorder of lipoprotein metabolism and other lipidemia; Z80.9 Family history of malignant neoplasm, unspecified
CPT/HCPCS: 96372; 96374; 99284

== ENCOUNTER → 2021-11-11 10:56 | Outpatient (CLI) | payer OTHER, SELFPAY ==
[2021-11-11 14:05] LABS: Amphetamine/Metha Screen,Urine Negative ng/ml (<1000)
[2021-11-11 14:07] LABS: Barbiturates Screen,Urine Negative ng/ml (<200)
[2021-11-11 14:08] LABS: Benzodiazepines Screen,Urine Positive ng/ml (<200); Cannabinoid Screen,Urine Positive ng/ml (<50)
[2021-11-11 14:09] LABS: Cocaine Screen,Urine Negative ng/ml (<300)
[2021-11-11 14:10] LABS: Methadone Screen,Urine Negative ng/ml (<300); Opiate Screen,Urine Positive ng/ml (<300)
[2021-11-11 14:12] LABS: Phencyclidine Screen,Urine Negative ng/ml (<25)
== END ==
LOC: LAB 11-26 10:56 → LAB.DROPOF 11-26 11:06
PROVIDERS: PCP Emergency Medicine; Visit Provider Emergency Medicine
DX: M54.9 Dorsalgia, unspecified (principal)
CPT/HCPCS: 80305

== ENCOUNTER → 2022-01-09 15:00 | Outpatient (CLI) | payer OTHER, SELFPAY ==
[2022-01-09 17:49] LABS: Amphetamine/Metha Screen,Urine Negative ng/ml (<1000)
[2022-01-09 17:50] LABS: Barbiturates Screen,Urine Negative ng/ml (<200); Benzodiazepines Screen,Urine Negative ng/ml (<200)
[2022-01-09 17:51] LABS: Cannabinoid Screen,Urine Positive ng/ml (<50)
[2022-01-09 17:52] LABS: Cocaine Screen,Urine Negative ng/ml (<300); Methadone Screen,Urine Negative ng/ml (<300)
[2022-01-09 17:53] LABS: Opiate Screen,Urine Positive ng/ml (<300); Phencyclidine Screen,Urine Negative ng/ml (<25)
== END ==
PROVIDERS: PCP Emergency Medicine; Visit Provider Emergency Medicine
DX: Z79.899 Other long term (current) drug therapy (principal)
CPT/HCPCS: 80305

== ENCOUNTER → 2022-04-07 09:54 | Outpatient (CLI) | payer OTHER, SELFPAY ==
[2022-03-10 20:03] LABS: Amphetamine/Metha Screen,Urine Negative ng/ml (<1000)
[2022-03-10 20:04] LABS: Barbiturates Screen,Urine Negative ng/ml (<200); Benzodiazepines Screen,Urine Negative ng/ml (<200)
[2022-03-10 20:05] LABS: Cannabinoid Screen,Urine Positive ng/ml (<50)
[2022-03-10 20:06] LABS: Cocaine Screen,Urine Negative ng/ml (<300)
[2022-03-10 20:07] LABS: Methadone Screen,Urine Negative ng/ml (<300)
[2022-03-10 20:08] LABS: Opiate Screen,Urine Positive ng/ml (<300); Phencyclidine Screen,Urine Negative ng/ml (<25)
== END ==
PROVIDERS: PCP Emergency Medicine; Visit Provider Emergency Medicine
DX: Z79.899 Other long term (current) drug therapy (principal)
CPT/HCPCS: 80305

== ENCOUNTER → 2022-04-21 15:35 | Outpatient (CLI) | payer OTHER, SELFPAY | PROVIDERS: PCP Emergency Medicine; Visit Provider Emergency Medicine | DX: R10.9 Unspecified abdominal pain (principal) | CPT/HCPCS: 87086 ==

== ENCOUNTER 2022-04-21 22:31 | Emergency (ER) | payer OTHER, SELFPAY ==
[2022-04-21 22:39] VITALS: BP 141/77; PULSE 100; RESP 18; TEMP 36.8; O2SAT 98; BMI 39.3
--- NOTE | 2022-04-21 22:43 | CT_ITS ---
PROCEDURE INFORMATION: Exam: CT Abdomen And Pelvis Without Contrast Exam date and time: 04/21/2022 10:57 PM Age: 41 years old Clinical indication: Abdominal pain; Localized; Lower TECHNIQUE: Imaging protocol: Computed tomography of the abdomen and pelvis without contrast. Radiation optimization: All CT scans at this facility use at least one of these dose optimization techniques: automated exposure control; mA and/or kV adjustment per patient size (includes targeted exams where dose is matched to clinical indication); or iterative reconstruction. COMPARISON: CT ABDOMEN PELVIS W CON 06/10/2021 5:05 PM FINDINGS: Liver: Normal. No mass. Gallbladder and bile ducts: Cholecystectomy. Pancreas: Normal. No ductal dilation. Spleen: Multiple calcified splenic granulomata. Adrenal glands: Normal. No mass. Kidneys and ureters: Punctate nonobstructing right renal stones. Stomach and bowel: Colonic diverticulosis. Appendix: No evidence of appendicitis. Intraperitoneal space: Unremarkable. No free air. No significant fluid collection. Vasculature: Mild atherosclerotic changes are seen within the abdominal aorta and branch vasculature without evidence of aneurysm. Lymph nodes: Unremarkable. No enlarged lymph nodes. Urinary bladder: Unremarkable as visualized. Reproductive: 3.5 cm left ovarian cyst. Bones/joints: Unremarkable. No acute fracture. Soft tissues: Unremarkable. IMPRESSION: 1. 3.5 cm left ovarian cyst. 2. Diverticulosis. 3. Punctate nonobstructing right renal stones.
[2022-04-21 22:51] LABS: Microscopic, Urine URINE MICROSCOPIC (MICROSCOPIC)
[2022-04-21 22:52] LABS: Basophils # 0.1 K/mm3 (0-0.2); Basophils % 0.9 % (0.1-2.0); Eosinophils # 0.2 K/mm3 (0.0-0.4); Eosinophils % 1.5 % (0.1-12.0); Hematocrit 47.1 % (37.0-47.0); Hemoglobin 15.4 g/dL (12.2-16.2); Lymphocytes # 1.3 K/mm3 (0.7-4.5); Lymphocytes % 9.3 % (10-50); Mean Corpuscular HGB Conc 32.7 g/dL (31.8-35.4); Mean Corpuscular Hemoglobin 31.5 pg (27.0-31.2); Mean Corpuscular Volume 96.4 fl (81-99); Mean Platelet Volume 10.4 fl (7.4-10.4); Monocytes # 0.1 K/mm3 (0.1-1.0); Monocytes % 0.6 % (1.7-9.3); Neutrophils # 12.1 K/mm3 (1.8-7.8); Neutrophils % 87.7 % (37.0-80.0); Platelet Count 319 K/mm3 (142-424); Red Blood Count 4.89 M/mm3 (4.20-5.40); Red Cell Distribution Width 12.5 % (11.5-17.5); White Blood Count 13.8 K/mm3 (4.8-10.8)
[2022-04-21 22:53] LABS: Chloride 102 mmol/L (98-107); Potassium 4.5 mmoL/L (3.5-5.1); Sodium 132 mmol/L (136-145)
[2022-04-21 22:55] LABS: Blood Urea Nitrogen 17 mg/dl (7-17); Creatinine Clearance Estimated 103 mL/min (50-200); Estimated Glomerular Filt Rate 54 ml/min (>60); GFR (African American) 66 ML/MIN (>60); MANUAL DIFFERENTIAL MANUAL DIFFERENTIAL (MANUAL DIFF)
[2022-04-21 22:56] LABS: Alanine Aminotransferase 28 U/L (12-78); Albumin Level 4.2 g/dl (3.5-5.0); Albumin/Globulin Ratio 1.4 (1.1-1.8); Alkaline Phosphatase 81 U/L (38-126); Anion Gap 11.5 mEq/L (5-15); Aspartate Amino Transferase 27 U/L (14-36); Calcium 9.7 mg/dl (8.4-10.2); Carbon Dioxide 23 mmol/L (22.0-30.0); Globulin 3.1 g/dL (1.3-3.2); Glucose 212 mg/dl (74-100); Lipase 62 U/L (23-300); Total Protein,Serum 7.3 g/dl (6.3-8.2)
[2022-04-21 23:16] LABS: Bilirubin,Total < 0.1 mg/dl (0.2-1.3)
[2022-04-21 23:20] LABS: Appearance,Urine CLEAR (Clear); Blood, Urine Negative (Negative); Color,Urine YELLOW (Yellow); Glucose,Urine (UA) Negative (Negative); Ketones,Urine Negative (Negative); Leukocyte Esterase,Urine 2+ (Negative); Nitrate,Urine Negative (Negative); Protein,Urine Negative (Negative); Urobilinogen,Urine 0.2 EU/dl (0.2)
[2022-04-21 23:40] LABS: Bilirubin,Urine 2+ (Negative)
[2022-04-21 23:40] LABS: Lymphocytes % 11 % (10-50); Neutrophils % 89 % (42-76); Total Cells Counted 100
[2022-04-21 23:41] LABS: Platelet Estimate Normal; Stomatocytes 1+
[2022-04-21 23:43] LABS: RBC,Urine Occasional #/hpf (0-3)
--- NOTE | 2022-04-22 00:19 | HMH.EDABDPAI ---
Discharge Plan Disposition Patient Disposition: Home, Self-Care Prescriptions Prescriptions: New levofloxacin 500 mg tablet 500 mg PO DAILY Qty: 7 0RF No Action mupirocin 2 % ointment 1 applic TP BID Qty: 22 0RF clonazepam 0.5 mg tablet 0.5 mg PO TID Qty: 90 1RF gabapentin 800 mg tablet 800 mg PO QID 30 Days Qty: 120 1RF hydrocodone-acetaminophen 7.5-325 mg tablet 1 tab PO QID Qty: 120 0RF fluticasone propionate 50 mcg/actuation spray,suspension 1 spray NS QDAY Qty: 9.9 2RF Rx Instructions: administer into each nostril albuterol sulfate 90 mcg/actuation HFA aerosol inhaler See Rx Instructions .Route .COMPLEX Qty: 8.5 12RF Rx Instructions: INHALE 2 puffs BY MOUTH EVERY 6 HOURS NEEDED --SHAKE WELL BEFORE USE-- omeprazole 40 mg capsule,delayed release(DR/EC) See Rx Instructions .ROUTE .COMPLEX Qty: 90 0RF Dose Instruction: TAKE ONE CAPSULE BY MOUTH EVERY DAY FOR gerd Rx Instructions: TAKE ONE CAPSULE BY MOUTH EVERY DAY FOR gerd phentermine [Adipex-P] 37.5 mg tablet 37.5 mg PO DAILY Qty: 30 0RF Rx Instructions: must administer 30 minutes before or 1-2 hours after breakfast bupropion HCl 150 MG tablet sustained-release 12 hr 150 mg PO BID methocarbamol 750 MG tablet 750 mg PO TID PRN (Reason: spasm) 5 Days Qty: 15 0RF Referrals Follow up/Referrals: Leroy Martínez MD [Primary Care Provider] - See instructions Clinical Impressions Clinical Impression: Abdominal pain Instructions Patient Instructions: DI for Acute Abdominal Pain Discharge ED Provider: Leroy Martínez Abdominal Pain HPI General Chief Complaint: Abdominal Pain Stated Complaint: Blood in urination Time Seen by Provider: 04/22/22 00:20 Mode of Arrival: Ambulatory Source of Information: Patient and Medical Record Limitations: No Limitations Description of Symptoms (Recalled from ER Triage Doc. by RN): pt c/o lower abdominal pain that radiates bilaterally. States that she saw her pcp today for this condition and had blood in her urine. States that the pain is also noted in her lower back. History of Present Illness HPI narrative: pt with abd pain with back pain with ongoing sx over the last few days complaint: abdominal pain and flank pain Onset (ago): day(s) Consistency: intermittent Location: L flank Severity: moderate Associated symptoms: denies other symptoms Related Data Home Medications Medication Instructions Recorded Confirmed bupropion HCl 150 mg tablet,12 hr 150 mg PO BID Depression 11/08/21 04/21/22 sustained-release Previous Rx's Medication Instructions Recorded fluticasone propionate 50 1 spray intranasal QDAY allergies 05/22/20 mcg/actuation nasal #9.9 mL spray,suspension methocarbamol 750 mg tablet 750 mg PO TID PRN spasm 5 days #15 11/08/21 tabs mupirocin 2 % topical ointment 1 applic topical BID #22 grams 11/11/21 albuterol sulfate 90 mcg/actuation See Rx Instructions .Route 02/03/22 aerosol inhaler .COMPLEX Asthma #8.5 grams clonazepam 0.5 mg tablet 0.5 mg PO TID Anxiety #90 tabs 03/10/22 gabapentin 800 mg tablet 800 mg PO QID Pain 30 days #120 03/10/22 tabs hydrocodone 7.5 mg-acetaminophen 1 tab PO QID #120 tabs 03/10/22 325 mg tablet omeprazole 40 mg capsule,delayed See Rx Instructions .Route 04/08/22 release .COMPLEX #90 caps phentermine 37.5 mg tablet 37.5 mg PO DAILY #30 tabs 04/08/22 (Adipex-P) levofloxacin 500 mg tablet 500 mg PO DAILY #7 tabs 04/22/22 Allergies Allergy/AdvReac Type Severity Reaction Status Date / Time morphine Allergy Intermediate I-RASH Verified 04/21/22 15:30 PFSH PFS Social History Smoking Status: Former smoker second hand exposure: No alcohol intake: never substance use type: denies use current occupational status: employed Travel in the last 8 weeks: None household members: spouse housing
[2022-04-22 00:28] VITALS: BP 127/66; PULSE 80; RESP 18; TEMP 36.8; O2SAT 97
== END 2022-04-22 00:38 | disposition home or self-care (01) ==
PROVIDERS: Emergency Provider Emergency Medicine; PCP Emergency Medicine
DX: R10.31 Right lower quadrant pain (principal); R10.32 Left lower quadrant pain; M54.50 Low back pain, unspecified; N83.209 Unspecified ovarian cyst, unspecified side; Z79.51 Long term (current) use of inhaled steroids; Z79.899 Other long term (current) drug therapy; Z87.891 Personal history of nicotine dependence
CPT/HCPCS: 74176; 80053; 81001; 83690; 85007; 85025; 96361; 96374; 96375; 96376; 99285; J0696; J2405

== ENCOUNTER → 2022-05-05 14:30 | Outpatient (CLI) | payer OTHER, SELFPAY ==
[2022-05-05 19:29] LABS: Amphetamine/Metha Screen,Urine Negative ng/ml (<1000); Barbiturates Screen,Urine Negative ng/ml (<200)
[2022-05-05 19:30] LABS: Benzodiazepines Screen,Urine Negative ng/ml (<200)
[2022-05-05 19:31] LABS: Cannabinoid Screen,Urine Positive ng/ml (<50); Cocaine Screen,Urine Negative ng/ml (<300)
[2022-05-05 19:32] LABS: Methadone Screen,Urine Negative ng/ml (<300); Opiate Screen,Urine Positive ng/ml (<300)
[2022-05-05 19:33] LABS: Phencyclidine Screen,Urine Negative ng/ml (<25)
== END ==
PROVIDERS: PCP Emergency Medicine; Visit Provider Emergency Medicine
DX: Z79.899 Other long term (current) drug therapy (principal)
CPT/HCPCS: 80305

== ENCOUNTER → 2022-07-04 12:24 | Outpatient (CLI) | payer OTHER, SELFPAY ==
[2022-07-01 22:41] LABS: Amphetamine/Metha Screen,Urine Negative ng/ml (<1000); Benzodiazepines Screen,Urine Positive ng/ml (<200)
[2022-07-01 22:42] LABS: Barbiturates Screen,Urine Negative ng/ml (<200)
[2022-07-01 22:43] LABS: Cannabinoid Screen,Urine Positive ng/ml (<50); Cocaine Screen,Urine Negative ng/ml (<300)
[2022-07-01 22:44] LABS: Methadone Screen,Urine Negative ng/ml (<300)
[2022-07-01 22:45] LABS: Opiate Screen,Urine Positive ng/ml (<300); Phencyclidine Screen,Urine Negative ng/ml (<25)
[2022-07-04 12:26] LABS: Microscopic, Urine URINE MICROSCOPIC (MICROSCOPIC)
[2022-07-04 12:47] LABS: Basophils # 0.3 K/mm3 (0-0.2); Basophils % 2.5 % (0.1-2.0); Eosinophils # 0.3 K/mm3 (0.0-0.4); Eosinophils % 2.4 % (0.1-12.0); Hematocrit 44.9 % (37.0-47.0); Hemoglobin 14.5 g/dL (12.2-16.2); Lymphocytes # 3.6 K/mm3 (0.7-4.5); Lymphocytes % 33.8 % (10-50); Mean Corpuscular HGB Conc 32.3 g/dL (31.8-35.4); Mean Corpuscular Hemoglobin 31.1 pg (27.0-31.2); Mean Corpuscular Volume 96.4 fl (81-99); Mean Platelet Volume 9.9 fl (7.4-10.4); Monocytes # 0.5 K/mm3 (0.1-1.0); Monocytes % 4.7 % (1.7-9.3); Neutrophils # 6.1 K/mm3 (1.8-7.8); Neutrophils % 56.5 % (37.0-80.0); Platelet Count 289 K/mm3 (142-424); Red Blood Count 4.66 M/mm3 (4.20-5.40); Red Cell Distribution Width 12.7 % (11.5-17.5); White Blood Count 10.8 K/mm3 (4.8-10.8)
[2022-07-04 12:48] LABS: Urine Pregnancy, HCG Qual. Negative (Negative)
[2022-07-04 13:04] LABS: Alanine Aminotransferase 12 U/L (12-78); Albumin Level 3.7 g/dl (3.5-5.0); Albumin/Globulin Ratio 1.4 (1.1-1.8); Alkaline Phosphatase 65 U/L (38-126); Anion Gap 6.3 mEq/L (5-15); Aspartate Amino Transferase 17 U/L (14-36); Bilirubin,Total 0.2 mg/dl (0.2-1.3); Blood Urea Nitrogen 10 mg/dl (7-17); Calcium 8.8 mg/dl (8.4-10.2); Carbon Dioxide 29 mmol/L (22.0-30.0); Chloride 108 mmol/L (98-107); Estimated Glomerular Filt Rate 68 ml/min (>60); GFR (African American) 83 ML/MIN (>60); Globulin 2.7 g/dL (1.3-3.2); Glucose 101 mg/dl (74-100); Potassium 4.3 mmoL/L (3.5-5.1); Sodium 139 mmol/L (136-145); Total Protein,Serum 6.4 g/dl (6.3-8.2)
[2022-07-04 15:49] LABS: Appearance,Urine CLEAR (Clear); Bilirubin,Urine Negative (Negative); Blood, Urine 2+ (Negative); Color,Urine YELLOW (Yellow); Glucose,Urine (UA) Negative (Negative); Ketones,Urine Negative (Negative); Leukocyte Esterase,Urine Negative (Negative); Nitrate,Urine Negative (Negative); Protein,Urine Negative (Negative); Specific Gravity, Urine 1.025 (1.005-1.030); Urobilinogen,Urine 0.2 EU/dl (0.2)
== END ==
PROVIDERS: Orthopaedic Surgery; PCP Emergency Medicine; Visit Provider Emergency Medicine
DX: Z01.818 Encounter for other preprocedural examination (principal); M54.16 Radiculopathy, lumbar region
CPT/HCPCS: 36415; 80053; 80305; 81001; 81025; 85025

== ENCOUNTER 2022-07-06 10:59 | Day surgery (SDC) | payer OTHER, SELFPAY ==
[2022-07-03 09:09] VITALS: BMI 39.3
[2022-07-06] VITALS (9 sets, daily range): BP systolic 120–156; BP diastolic 59–90; PULSE 65–83; RESP 12–18; TEMP 36.1–36.4; O2SAT 97–100
[2022-07-06 11:12] LABS: Urine Pregnancy, HCG Qual. Negative (Negative)
--- NOTE | 2022-07-06 11:40 | SUR.PREOP ---
Brought Pt's boyfriend back to be with pt until time to go into surgery. Noted that boyfriend was in a wheelchair and when transferred over to regular chair was very unsteady. Eyes are red and speech seems a little slurred at times. Talking loudly and asking this law writer personal question. Joking loudly with pt. Notified Jordi Carbone cath lab manager of concerns about pt's significant other and his ability to drive her home after the procedure. Jordi Carbone came to preop area and after this RN assisted significant other back out to waiting room, Jordi Carbone RN spoke with pt and determined that he was okay to drive pt.
--- NOTE | 2022-07-06 12:37 | EXP.ANES.CKL ---
[facility] Disclaimer: The information contained in this section may have been updated after the patient was seen, as this information can be updated by other users. Medical History Allergies Carpal tunnel syndrome Gallbladder disease History of back pain History of chest pain Surgical History H/O sinus surgery History of section History of cholecystectomy History of myringotomy History of tonsillectomy Family History Other Family history of cancer Family history of myocardial infarction Family history of stroke Social History Smoking Status: Current every day smoker tobacco type: cigarettes packs per day: 1 pack-years: 15 second hand exposure: No alcohol intake: never substance use type: denies use current occupational status: employed Travel in the last 8 weeks: None household members: significant other housing: house lives independently: Yes marital status: education level: high school current occupational exposures/hazards: No caffeine: Yes special noemi needs: No agree to transfusion: No do you feel safe at home: Yes victim of physical abuse: No victim of emotional abuse: No victim of sexual abuse: No would you like helpful sources: No [facility] Anesthesia Checklist Patient Identification Patient Identification: Verbal (Name & ) Structural Data Admitted From: Home Planned Operative Procedure/s: l carpal tunnel release Consent for Planned Operative Procedure(s) Verified: Yes NPO Status Verified Time NPO: 00:00 Additional verifications Anesthesia Reactions: No Hx Blood Transfusions: No Blood Transfusion Reaction: No Airway Assessment C-Spine Mobility Assessed: Yes TMJ Mobility Assessed: Yes Dentition: Partials Neurological Assessment Level of Consciousness: Awake, Alert and Appropriate Anesthesia Plan Anesthesia Risk discussed: Yes Anesthesia Plan: Verified ASA Class: II Anesthesia Type: General
--- NOTE | 2022-07-06 12:51 | P.OP_ITS ---
Date of procedure: 07/06/22 Pre-op Diagnosis:: Left carpal tunnel syndrome Post-op Diagnosis:: Same Procedure performed:: Left endoscopic carpal tunnel release Surgeon:: Fahad Ibarra DO MEDICAL SOCIAL CONSULTANT:: Gustavo Pedro Anesthesia: LMA Estimated blood loss (mL): 0 Operative findings:: See dictation Operative note:: Patient identified preoperatively. Left wrist marked with the yes and my initials. Transported operative suite. Placed bilaterally operating bed. Hand table placed. Left upper extremity was then prepped and draped in normal sterile fashion. Once prepped and draped final operative timeout performed to identify proper patient procedure and extremity. Everyone involved in the case agreed. There were no counter indications to beginning. She did receive preoperative antibiotics. Marking pen was used to make plain incision of the volar wrist crease. Esmarch was used to exsanguinate the extremity. Pneumatic tourniquet inflated to 250 mmHg. Skin was used as the skin. Careful dissection was taken down to identify the most proximal aspect of the transverse carpal ligament. Once this was identified. The dilator from the [employer] endoscopic carpal tunnel release set was utilized. This was followed with this lead for the left side. Once within the carpal tunnel the camera was placed in the transverse carpal ligament clearly seen superiorly. Hook was used to identify the most distal aspect of the carpal tunnel. Rasp was used to remove soft tissue. And the hook blade from the [employer] endoscopic carpal tunnel release was used to fully open the transverse carpal ligament. This was directly visualized throughout the procedure. Pictures were taken. Once completely released copious irrigation of the wound was performed. Skin was closed with nylon stitches. Local anesthesia infiltrated. Sterile hand dressing placed. Patient waken anesthesia taken recovery in stable condition. Tourniquet time (min): 17 Condition: stable Disposition: PACU Complications:: None apparent
--- NOTE | 2022-07-06 12:57 | EXP.ANES.I ---
[facility] Anesthesia Record Part I Anesthesia Record I Intake, IV Amount: 1,200 Estimated blood loss (mL): 0 Urine output (mL): 0 Blood Pressure: 156/81 SaO2: 100 Pulse Rate: 79 Respiratory Rate: 12 Temperature: 97.5 F Patient is:: Awake and Stable Stable to PACU at:: 12:55
--- NOTE | 2022-07-06 13:50 | SUR.PHASEII ---
Debora Neves and Jordi Carbone photostatic copy maker aware of boyfriend's status and verbalized ok to discharge.
--- NOTE | 2022-07-06 13:50 | SUR.PHASEII ---
Verified with Pharmacy ok to take Hydrocodone with the Morphine allergy since pt takes at home regularly with no problem.
--- NOTE | 2022-07-06 14:00 | SUR.PHASEII ---
Pt's boyfriend has been at bedside, meeting pt needs and providing support. Assisting pt get dressed. Discharge instructions reviewed with pt and boyfriend. Verbalized understanding of all.
--- NOTE | 2022-07-06 16:29 | SUR.PREOP ---
1145- Spoke to patient about her transportation home after surgery. Her boyfriend appears to be very tired and unable to walk (using wheelchair). I asked the patient if she felt ok with him driving her home today. She stated Oh yeah he is ok. He has worked all night. He drives me everywhere.
[2022-07-07 09:37] VITALS: BP 144/90; PULSE 70; TEMP 36.1
--- NOTE | 2022-07-07 09:37 | P.PNANES_ITS ---
[facility] Anesthesia Record Part II Anesthesia Record Part II Discharge Time: 13:25 Destination: [facility] PACU nurse assessment reviewed?: Yes Patient Condition:: Good Anesthesia Complications:: None Swallowing reflex intact?: Yes Cyanosis?: No Blood Pressure: 144/90 Pulse Rate: 70 Temperature: 97 F Mental Status: Alert & Oriented Pain level:: 6 Nausea and/or vomitting:: None Intake, IV Amount: 1,000
== END 2022-07-06 14:10 | disposition home or self-care (01) ==
PROVIDERS: PCP Emergency Medicine; Visit Provider Orthopaedic Surgery
PROC: (CPT 64721; principal; 2022-07-06 12:00)
DX: G56.02 Carpal tunnel syndrome, left upper limb (principal)
CPT/HCPCS: 64721; 81025; 96374; J2405

== ENCOUNTER → 2022-08-28 23:28 | Outpatient (CLI) | payer OTHER, SELFPAY ==
[2022-08-28 19:35] LABS: Amphetamine/Metha Screen,Urine Negative ng/ml (<1000)
[2022-08-28 19:37] LABS: Barbiturates Screen,Urine Negative ng/ml (<200)
[2022-08-28 19:38] LABS: Benzodiazepines Screen,Urine Negative ng/ml (<200); Cannabinoid Screen,Urine Positive ng/ml (<50)
[2022-08-28 19:39] LABS: Cocaine Screen,Urine Negative ng/ml (<300); Methadone Screen,Urine Negative ng/ml (<300)
[2022-08-28 19:40] LABS: Opiate Screen,Urine Positive ng/ml (<300)
[2022-08-28 19:41] LABS: Phencyclidine Screen,Urine Negative ng/ml (<25)
== END ==
PROVIDERS: PCP Emergency Medicine; Visit Provider Emergency Medicine
DX: Z79.899 Other long term (current) drug therapy (principal)
CPT/HCPCS: 80305

== ENCOUNTER → 2022-10-27 15:01 | Outpatient (CLI) | payer OTHER, SELFPAY ==
[2022-10-27 14:50] LABS: Amphetamine/Metha Screen,Urine Negative ng/ml (<1000)
[2022-10-27 14:51] LABS: Barbiturates Screen,Urine Negative ng/ml (<200); Benzodiazepines Screen,Urine Positive ng/ml (<200)
[2022-10-27 14:52] LABS: Cannabinoid Screen,Urine Negative ng/ml (<50); Cocaine Screen,Urine Negative ng/ml (<300)
[2022-10-27 14:53] LABS: Methadone Screen,Urine Negative ng/ml (<300)
[2022-10-27 14:54] LABS: Opiate Screen,Urine Positive ng/ml (<300); Phencyclidine Screen,Urine Negative ng/ml (<25)
== END ==
PROVIDERS: PCP Emergency Medicine; Visit Provider Emergency Medicine
DX: Z79.899 Other long term (current) drug therapy (principal)
CPT/HCPCS: 80305

== ENCOUNTER → 2022-12-25 12:58 | Outpatient (CLI) | payer OTHER, SELFPAY ==
[2022-12-25 13:12] LABS: Amphetamine/Metha Screen,Urine Negative ng/ml (<1000)
[2022-12-25 13:13] LABS: Barbiturates Screen,Urine Negative ng/ml (<200)
[2022-12-25 13:14] LABS: Benzodiazepines Screen,Urine Positive ng/ml (<200); Cannabinoid Screen,Urine Negative ng/ml (<50)
[2022-12-25 13:15] LABS: Cocaine Screen,Urine Negative ng/ml (<300)
[2022-12-25 13:16] LABS: Methadone Screen,Urine Negative ng/ml (<300); Opiate Screen,Urine Positive ng/ml (<300)
[2022-12-25 13:29] LABS: Phencyclidine Screen,Urine Negative ng/ml (<25)
== END ==
PROVIDERS: PCP Emergency Medicine; Visit Provider Emergency Medicine
DX: Z79.899 Other long term (current) drug therapy (principal)
CPT/HCPCS: 80305

== ENCOUNTER → 2023-01-19 10:50 | Outpatient (POV) | payer OTHER, SELFPAY | PROVIDERS: Visit Provider Specialist/Technologist | DX: Z00.00 Encounter for general adult medical examination without abnormal findings (principal) ==

== ENCOUNTER → 2023-02-11 15:51 | Outpatient (CLI) | payer OTHER, SELFPAY ==
[2023-02-11 14:12] LABS: Amphetamine/Metha Screen,Urine Negative ng/ml (<1000); Barbiturates Screen,Urine Negative ng/ml (<200)
[2023-02-11 14:13] LABS: Benzodiazepines Screen,Urine Negative ng/ml (<200)
[2023-02-11 14:14] LABS: Cannabinoid Screen,Urine Negative ng/ml (<50)
[2023-02-11 14:15] LABS: Cocaine Screen,Urine Negative ng/ml (<300)
[2023-02-11 14:16] LABS: Methadone Screen,Urine Negative ng/ml (<300); Opiate Screen,Urine Negative ng/ml (<300)
[2023-02-11 14:17] LABS: Phencyclidine Screen,Urine Negative ng/ml (<25)
== END ==
PROVIDERS: PCP Emergency Medicine; Visit Provider Emergency Medicine
DX: Z79.899 Other long term (current) drug therapy (principal)
CPT/HCPCS: 80305

== ENCOUNTER 2023-06-24 12:25 | Outpatient (CLI) | payer OTHER, SELFPAY ==
[2023-06-24 13:40] LABS: Benzodiazepines Screen,Urine Negative ng/ml (<200)
[2023-06-24 13:41] LABS: Amphetamine/Metha Screen,Urine Positive ng/ml (<1000); Barbiturates Screen,Urine Negative ng/ml (<200)
[2023-06-24 13:42] LABS: Cannabinoid Screen,Urine Positive ng/ml (<50)
[2023-06-24 13:43] LABS: Cocaine Screen,Urine Negative ng/ml (<300); Methadone Screen,Urine Negative ng/ml (<300)
[2023-06-24 13:44] LABS: Opiate Screen,Urine Negative ng/ml (<300); Phencyclidine Screen,Urine Negative ng/ml (<25)
[2023-06-28 21:33] LABS: Neisseria gonorrhoeae, NAA Negative (Negative)
== END 2023-06-24 23:59 ==
LOC: LAB.DROPOF 12:26
PROVIDERS: PCP Internal Medicine; Visit Provider Internal Medicine
DX: Z20.2 Contact with and (suspected) exposure to infections with a predominantly sexual mode of transmission (principal)
CPT/HCPCS: 80307; 87491; 87591

== ENCOUNTER 2023-08-06 15:52 | Emergency (ER) | payer OTHER, SELFPAY ==
[2023-08-06 16:00] VITALS: BP 142/64; PULSE 70; RESP 18; TEMP 36.9; O2SAT 97; BMI 39.3
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
[2023-08-06 16:29] LABS: UTC Influenza A Antigen Negative (Negative); UTC Influenza B Antigen Negative (Negative)
[2023-08-06 17:14] LABS: Influenza A, PCR Not Detected (NotDetected); Influenza B, PCR Not Detected (NotDetected)
[2023-08-06 17:15] VITALS: BP 142/64; PULSE 70; RESP 18; TEMP 36.9; O2SAT 97
[2023-08-06 17:43] LABS: Coronavirus 19, PCR Detected (NotDetected)
[2023-08-10 05:09] LABS: Neisseria gonorrhoeae, NAA Negative (Negative)
== END 2023-08-06 17:15 | disposition home or self-care (01) ==
PROVIDERS: Emergency Provider Nurse Practitioner Family; PCP Internal Medicine
DX: U07.1 COVID-19 (principal); B96.89 Other specified bacterial agents as the cause of diseases classified elsewhere; R51.9 Headache, unspecified; R09.81 Nasal congestion; F17.210 Nicotine dependence, cigarettes, uncomplicated
CPT/HCPCS: 87086; 87491; 87591; 87636; 87804; 99212; 99214; G0463

== ENCOUNTER 2024-06-29 12:44 | Outpatient (CLI) | payer OTHER, SELFPAY ==
--- NOTE | 2024-06-29 12:45 | MR_ITS ---
FINAL REPORT CLINICAL HISTORY: low back pain with bilateral sciatica COMPARISON: 10/13/2021 FINDINGS: Multiplanar MR imaging of the lumbar spine was performed without contrast. On the sagittal T2-weighted images, there is abnormal decreased signal in the L2-3, L3-4, and L4-5 discs. The vertebrae are of normal height. The vertebral alignment is normal. L1-2: There is no significant canal stenosis or neural foraminal narrowing. L2-3: There is a mild left posterolateral disc protrusion with mild to moderate left neural foraminal narrowing. L3-4: A mild annular bulge is present with mild bilateral neural foraminal narrowing. L4-5: A mild annular bulge is present with posterolateral disc protrusions and moderate bilateral neural foraminal narrowing. There is no significant canal stenosis or neural foraminal narrowing. L5-S1: There is no significant canal stenosis or neural foraminal narrowing. IMPRESSION: Mild and moderate degenerative change involving the L2-3, L3-4, and L4-5 levels, stable when compared with the prior MRI of 10/13/2021. Reviewed, Interpreted and Dictated by Pepe Thompson MD Transcribed by Maria Del Carmen Lay Authenticated and [facility]
== END 2024-06-29 23:59 | disposition home or self-care (01) ==
LOC: RAD 12:45
PROVIDERS: PCP Family Medicine; Visit Provider Family Medicine
DX: M54.41 Lumbago with sciatica, right side (principal); M54.42 Lumbago with sciatica, left side; M54.16 Radiculopathy, lumbar region; G62.9 Polyneuropathy, unspecified
CPT/HCPCS: 72148